=== PATIENT | male | born 1940 | race Caucasian/White ===

== ENCOUNTER 2022-07-20 11:18 | Emergency (ER) | payer MEDICARE, SELFPAY ==
[2022-07-20 11:26] VITALS: BP 136/73; PULSE 104; RESP 18; TEMP 36.7; O2SAT 95; BMI 29.5
--- NOTE | 2022-07-20 11:41 | W.ED.BACK ---
Documented by User: Zaynab Corcoran PA-C 07/20/22 15:32 HPI - Back Pain/Injury General: Chief Complaint: Back Pain/Injury Stated Complaint: hip and leg pain, both Time Seen by Provider: 07/20/22 11:41 Source: patient Mode of arrival: ambulatory Limitations: no limitations History of Present Illness: 82-year-old male presents to the ER today for low back pain and difficulty walking since this morning. Patient reports over the last couple days he has noticed some increased low back pain. Patient reports he has a history of low back problems and will have flareups occasionally however this is extreme in comparison to his history. Patient reports this morning the back pain was so bad that he could not walk. Patient reports he is okay when he sitting however when he stands and tries to lift his legs he is unable to lift his legs. Patient reports he fell to the ground and his had to call for help to get him up. Patient denies any loss of bowel or bladder control. His biggest issue is not being able to lift the legs. Review of Systems General: Reports: 10 or more systems reviewed and unremarkable except in HPI and below Physical Exam Const: COMMON NORMALS: average body habitus, patient oriented x3, no limitations, healthy appearing, alert and well nourished; apparent distress (No distress unless trying to ambulate) Resp: COMMON NORMALS: normal respiratory effort EFFORT & INSPECTION: Yes able to speak in complete sentences Cardio: COMMON NORMALS: regular rhythm RATE: tachycardic RHYTHM: regular rhythm : COMMON NORMALS: Yes no CVA tenderness BLADDER/KIDNEY EXAM: Yes no CVA tenderness Back/Pelvis: COMMON NORMALS: no CVA tenderness and thoracic and lumbar spine normal to inspection; negative for no thoracic nor lumbar tenderness and negative for thoraco-lumbar ROM normal OTHER: Patient has tenderness over bilateral SI joints. Patient has difficulty lifting his legs when standing however is able to lift against resistance when sitting. Extremity: COMMON NORMALS: normal to inspection and full ROM Neuro: COMMON NORMALS: patient oriented x3 SENSORIUM/ORIENTATION: Yes alert Psych: COMMON NORMALS: mental status grossly normal, Normal thought process present and cooperative THOUGHT PROCESS: Normal thought process present Skin: COMMON NORMALS: no rashes or lesions noted and no wounds GENERAL SKIN EXAM: no rashes or lesions noted Course ED course: 82-year-old male presents to the ER today for worsening low back pain and inability to lift his legs when standing. Patient has a history of low back problems and has occasional flareups however this is much different. Patient reports that it worsened significantly this morning and he fell to the ground. His was unable to get him out of the floor. Patient reports he can lift his legs while sitting however when he stands up he is unable to lift his legs to walk. Patient denies any loss of bowel or bladder control at this time. We will get an x-ray and likely CT. May have to also get an MRI depending on results giveb neurological deficit. Reevaluation(s): Reevaluation #1: Patient had significant pain after the CT and having to lay flat. Patient given fentanyl for pain. Time: 13:47 Reevaluation #2: I spoke with Dr. Higgins regarding patient's MRI results. He reports patient does need seen he would be glad to see him Saturday in the clinic. In the meantime he recommends high-dose steroids and something for pain. Time: 15:30 Vital Signs: Vital signs: Vital Signs Temperature 98.1 F 07/20/22 11:26 Pulse Rate 104 H 07/20/22 11:26 Respiratory Rate 16 07/20/22 15:29 Blood Pressure 136/73 07/20/22 11:26 Pulse Oximetry 95 07/20/22 11:26 Oxygen Delivery Me thod 07/20/22 11:26 MDM - Back Pain/Injury Medical Decision Making 82-year-old male presents to the ER today for worsening low back pain and inability to lift his legs when standing. Patient has a history of low back problems and has occasional flareups however this is much different. Patient reports that it worsened significantly this morning and he fell to the ground. His was unable to get him out of the floor. Patient reports he can lift his legs while sitting however when he stands up he is unable to lift his legs to walk. Patient denies any loss of bowel or bladder control at this time. We will get an x-ray and likely CT. May have to also get an MRI depending on results given neurological deficit. Imaging results all were obtained and patient appears to have some pretty significant stenosis of the central canal and encroachment on multiple nerve roots. Likely this is the cause of patient's neurological symptoms. I did discuss these findings with Dr. Higgins who would like to see patient in clinic on Saturday. He did not feel this was a surgical emergency today. He would recommend high-dose steroids and recommended 60 mg x 3 days, 40 mg x 2 days and then 20 mg x 2 days. I will also send patient home with hydrocodone for pain and they requested a muscle relaxer. Discussed with patient that he needs to return to the ER with any worsening neurological symptoms including loss of bowel or bladder control. Patient also should make sure he has a wheelchair or walker at home to prevent falls given his difficulty with ambulation. Patient and verbalized understanding and are in agreement with the treatment plan. Labs Radiology Impressions Lumbar Spine X-Ray 07/20/22 11:45 IMPRESSION: 1. Osteopenia. 2. Grade 1 anterolisthesis L4 on L5 measuring 7 mm. 3. Advanced facet arthropathy L3-L5. 4. Disc space narrowing worse L5-S1. 5. 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 6. Infrarenal abdominal aortic aneurysm measuring 3.1 cm in AP dimension. Lumbar Spine CT 07/20/22 11:57 IMPRESSION: 1. High-grade severe central canal stenosis L4-L5 due to grade 1 anterolisthesis in combination with disc bulging and advanced facet arthropathy with ligamentum flavum hypertrophy. Moderate to severe RIGHT foraminal narrowing 2. Moderate central canal stenosis L2-L3 and moderate to severe central canal stenosis L3-L4. 3. Moderate to severe multilevel bony foraminal narrowing worse at RIGHT L3-L4, RIGHT L4-L5, and bilateral L5-S1. Attempted notification Zaynab Corcoran PA-C at 07/20/2022 12:37 PM. Lumbar Spine MRI 07/20/22 12:57 IMPRESSION: 1. Severe central, bilateral subarticular recess and foraminal stenosis at L3-4 and L4-5. Combination of disc, osteophytes, facet and ligamentum flavum disease. 2. Moderate central stenosis at L2-3 with severe bilateral subarticular recess and moderate foraminal stenosis. Most significant encroachment upon the traversing L3 nerve roots. 3. Moderate to severe bilateral foraminal stenosis at L5-S1 with encroachment upon the L5 and S1 nerve roots. Critical Care Time Critical Care Time: Critical Care Time: No Discharge Plan Discharge Patient Disposition: Home Clinical Impression: Foraminal stenosis of lumbar region, Pain from lumbosacral nerve root Condition: Stable Prescriptions: New prednisone 20 mg tablet See Rx Instructions .ROUTE .COMPLEX 3 Days Qty: 15 0RF Rx Instructions: 60 mg orally x 3 days, then 40 mg daily x 2 days then 20 mg daily x 2 days hydrocodone-acetaminophen 5-325 mg tablet 1 tab PO Q8H PRN (Reason: pain) Qty: 12 0RF methocarbamol 750 mg tablet 750 mg PO Q8H Qty: 21 0RF Discharge Orders: Discharge ED (Routine); Ordered 07/20/22 Ordered By: Zaynab Corcoran Discharge Diet: Usual diet Discharge Activity: Limit activity as instructed Patient Instructions: Opioid Safety Activity Restrictions/Additional Instructions: Take medications as prescribed. Follow-up with Dr. Higgins on Saturday. Use a walker or wheelchair for ambulation at home to avoid falls. Return to the ER for any new or worsening symptoms including loss of bowel or bladder control or other neurological deficits. 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 Documented by User: George Tam DO 07/20/22 18:37 HPI - Back Pain/Injury General: Chief Complaint: Back Pain/Injury Stated Complaint: hip and leg pain, both Time Seen by Provider: 07/20/22 11:41 Course Vital Signs: Vital signs: Vital Signs Temperature 98.1 F 07/20/22 11:26 Pulse Rate 104 H 07/20/22 11:26 Respiratory Rate 16 07/20/22 15:29 Blood Pressure 136/73 07/20/22 11:26 Pulse Oximetry 95 07/20/22 11:26 Oxygen Delivery Me thod 07/20/22 11:26 MDM - Back Pain/Injury Medical Decision Making 82-year-old male presents to the ER today for worsening low back pain and inability to lift his legs when standing. Patient has a history of low back problems and has occasional flareups however this is much different. Patient reports that it worsened significantly this morning and he fell to the ground. His was unable to get him out of the floor. Patient reports he can lift his legs while sitting however when he stands up he is unable to lift his legs to walk. Patient denies any loss of bowel or bladder control at this time. We will get an x-ray and likely CT. May have to also get an MRI depending on results given neurological deficit. Imaging results all were obtained and patient appears to have some pretty significant stenosis of the central canal and encroachment on multiple nerve roots. Likely this is the cause of patient's neurological symptoms. I did discuss these findings with Dr. Higgins who would like to see patient in clinic on Saturday. He did not feel this was a surgical emergency today. He would recommend high-dose steroids and recommended 60 mg x 3 days, 40 mg x 2 days and then 20 mg x 2 days. I will also send patient home with hydrocodone for pain and they requested a muscle relaxer. Discussed with patient that he needs to return to the ER with any worsening neurological symptoms including loss of bowel or bladder control. Patient also should make sure he has a wheelchair or walker at home to prevent falls given his difficulty with ambulation. Patient and verbalized understanding and are in agreement with the treatment plan. Chart reviewed and patient discussed with midlevel. Agree with assessment and plan. Labs Radiology Impressions Lumbar Spine X-Ray 07/20/22 11:45 IMPRESSION: 1. Osteopenia. 2. Grade 1 anterolisthesis L4 on L5 measuring 7 mm. 3. Advanced facet arthropathy L3-L5. 4. Disc space narrowing worse L5-S1. 5. 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 6. Infrarenal abdominal aortic aneurysm measuring 3.1 cm in AP dimension. Lumbar Spine CT 07/20/22 11:57 IMPRESSION: 1. High-grade severe central canal stenosis L4-L5 due to grade 1 anterolisthesis in combination with disc bulging and advanced facet arthropathy with ligamentum flavum hypertrophy. Moderate to severe RIGHT foraminal narrowing 2. Moderate central canal stenosis L2-L3 and moderate to severe central canal stenosis L3-L4. 3. Moderate to severe multilevel bony foraminal narrowing worse at RIGHT L3-L4, RIGHT L4-L5, and bilateral L5-S1. Attempted notification Zaynab Corcoran PA-C at 07/20/2022 12:37 PM. Lumbar Spine MRI 07/20/22 12:57 IMPRESSION: 1. Severe central, bilateral subarticular recess and foraminal stenosis at L3-4 and L4-5. Combination of disc, osteophytes, facet and ligamentum flavum disease. 2. Moderate central stenosis at L2-3 with severe bilateral subarticular recess and moderate foraminal stenosis. Most significant encroachment upon the traversing L3 nerve roots. 3. Moderate to severe bilateral foraminal stenosis at L5-S1 with encroachment upon the L5 and S1 nerve roots. Discharge Plan Discharge Patient Disposition: Home Clinical Impression: Foraminal stenosis of lumbar region, Pain from lumbosacral nerve root Condition: Stable Prescriptions: New prednisone 20 mg tablet See Rx Instructions .ROUTE .COMPLEX 3 Days Qty: 15 0RF Rx Instructions: 60 mg orally x 3 days, then 40 mg daily x 2 days then 20 mg daily x 2 days hydrocodone-acetaminophen 5-325 mg tablet 1 tab PO Q8H PRN (Reason: pain) Qty: 12 0RF methocarbamol 750 mg tablet 750 mg PO Q8H Qty: 21 0RF Discharge Orders: Discharge ED (Routine); Ordered 07/20/22 Ordered By: Zaynab Corcoran Discharge Diet: Usual diet Discharge Activity: Limit activity as instructed Patient Instructions: Opioid Safety Activity Restrictions/Additional Instructions: Take medications as prescribed. Follow-up with Dr. Higgins on Saturday. Use a walker or wheelchair for ambulation at home to avoid falls. Return to the ER for any new or worsening symptoms including loss of bowel or bladder control or other neurological deficits. 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
--- NOTE | 2022-07-20 11:45 | XR_ITS ---
WS: [id number] LUMBAR SPINE TECHNIQUE: 3 views of the lumbar spine CLINICAL INFORMATION: acute low back pain COMPARISON: None. FINDINGS: Five [id number] lumbar vertebral bodies. Osteopenia. Grade 1 anterolisthesis L4 on L5 measuring 7 mm. Disc space narrowing worse L5-S1. Advanced facet arthropathy L3-L5. Ankylosis in the lower thor acic spine. Aortic calcification. Ectatic infrarenal abdominal aorta measuring 3.1 cm in AP dimension . XR/XR lumbar spine 2-3V* [id number] IMPRESSION: 1. Osteopenia. 2. Grade 1 anterolisthesis L4 on L5 measuring 7 mm. 3. Advanced facet arthropathy L3-L5. 4. Disc space narrowing worse L5-S1. 5. 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 6. Infrarenal abdominal aortic aneurysm measuring 3.1 cm in AP dimension.
--- NOTE | 2022-07-20 11:57 | CT_ITS ---
WS: [id number] CT LUMBAR SPINE TECHNIQUE: Noncontrast CT of the lumbar spine with coronal and sagittal reformatted images. CLINICAL INFORMATION: weakness/cannot lift legs COMPARISON: None. DLP: 878.[address] scans at [facility] use at least one of these dose optimization techniques: automated e xposure control; mA and/or kV adjustment per patient size (includes targeted exams where dose is matc hed to clinical indication); or iterative reconstruction. FINDINGS: Mild lumbar curve. No acute compression. Osteopenia. Vacuum disc phenomenon at L3-L4 L4-L5 and L5-S1. Grade 1 anterolisthesis L4 on L5 measuring 7 mm. No acute appearing compression fractures. 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 Adrenal glands are normal. Fatty atrophy of the pancreas. Splenic artery calcification. Small infrare nal abdominal aortic aneurysm 2.3 x 2.2 cm AP by transverse. Hypertrophic changes sacroiliac joints. T12-L1: Narrowing of the RIGHT subarticular recess with RIGHT facet arthropathy. Mild RIGHT and no si gnificant LEFT foraminal narrowing. L1-L2: Mild disc osteophytic ridging. Narrowing of the subarticular recess. Moderate facet arthropath y. Mild RIGHT foraminal narrowing. L2-L3: Disc osteophyte complex with endplate ridging. Central disc osteophyte protrusion. Moderate ce ntral canal stenosis with advanced facet arthropathy and ligamentum flavum hypertrophy. Mild bilatera l foraminal narrowing. L3-L4: Mild disc bulging with osteophytic ridging. Moderate to severe central canal stenosis. Advance d facet arthropathy. Impingement on the traversing RIGHT greater than LEFT L4 nerve roots. Severe RIG HT and moderate LEFT foraminal narrowing. L4-L5: Severe central canal stenosis due to grade 1 anterolisthesis in combination with disc bulging advanced facet arthropathy. Ligamentum flavum hypertrophy. Moderate to severe RIGHT and mild LEFT bon y foraminal narrowing. L5-S1: Disc osteophyte complex with endplate ridging. Impingement traversing S1 nerve roots bilateral ly. Moderate facet arthropathy. Moderate to severe bilateral bony foraminal narrowing. CT/CT lumbar spine wo con* [id number] IMPRESSION: 1. High-grade severe central canal stenosis L4-L5 due to grade 1 anterolisthes is in combination with disc bulging and advanced facet arthropathy with ligamen mo flavum hypertrophy. Moderate to severe RIGHT foraminal narrowing 2. Moderate central canal stenosis L2-L3 and moderate to severe central canal stenosis L3-L4. 3. Moderate to severe multilevel bony foraminal narrowing worse at RIGHT L3-L4 , RIGHT L4-L5, and bilateral L5-S1. Attempted notification Zaynab Corcoran PA-C at 07/20/2022 12:37 PM.
--- NOTE | 2022-07-20 12:57 | MR_ITS ---
WS: [id number] MRI LUMBAR SPINE NONCONTRAST HISTORY: neuro deficit, acute low back pain COMPARISON: CT lumbar spine 07/20/2022 TECHNIQUE: Sagittal and axial multisequence imaging is submitted. Fast scan of the lumbar spine perfo rmed due to patient's severe back pain. Increase in lumbar lordosis. 4 mm anterolisthesis of L4. Mild increase in the lumbar lordosis. No acu te fracture or marrow edema. Mild disc space narrowing and desiccation. Conus terminates normally at L1-2 disc level. L1-L2: Mild bilateral foraminal stenosis due to facet and disc disease. L2-L3: Diffuse annular disc bulging and osteophytic ridging with ligamentum flavum and facet arthriti s. Encroachment into the lateral recesses. Moderate central with severe bilateral subarticular recess stenosis. At least moderate bilateral foraminal stenosis. There is significant encroachment upon the traversing L3 nerve roots bilaterally. L3-L4: Diffuse osteophytic ridging and annular disc bulging with severe ligamentum flavum and facet a rthritis. Complete effacement of CSF. Severe central, bilateral subarticular recess and foraminal lili nosis. L4-L5: Complete effacement of CSF. There is severe generative disc disease with ligamentum flavum hyp ertrophy and facet arthritis. There may be disc protrusions but these are difficult to see a months t he remaining changes. Severe central, bilateral subarticular recess and foraminal stenosis. L5-S1: Asymmetric disc bulging extends to the LEFT. Disc extends into the LEFT lateral recess and LEF T foramen. Additional central disc protrusion. Mild disc contact on the S1 nerve roots and the exitin g L5 nerve roots. Mild central stenosis with moderate to severe bilateral foraminal stenosis. MR/MR lumbar spine wo con* [id number] IMPRESSION: 1. Severe central, bilateral subarticular recess and foraminal stenosis at L3- 4 and L4-5. Combination of disc, osteophytes, facet and ligamentum flavum disea se. 2. Moderate central stenosis at L2-3 with severe bilateral subarticular recess and moderate foraminal stenosis. Most significant encroachment upon the janae sing L3 nerve roots. 3. Moderate to severe bilateral foraminal stenosis at L5-S1 with encroachment upon the L5 and S1 nerve roots.
[2022-07-20 14:28] VITALS: RESP 16
[2022-07-20] MEDS: fentaNYL 50 mcg/mL INJ 2mL IVP ×2 (14:28→15:29)
[2022-07-20 15:29] VITALS: RESP 16
--- NOTE | 2022-07-20 16:55 | DCPLANNER ---
Addendum entered by Betsy Wheeler 07/24/22 16:25: medical territory manager received the following message from the ortho clinic regarding follow up appointment: Called and spoke with pts . Pt is on his way to the ER via ambulance for this same issue currently. They will call if needed at a later time Patient came back to the ER and was admitted to the hospital. Original Note: medical territory manager had message to schedule a follow up appointment for patient with ortho. medical territory manager sent patients information to the front office staff at ortho. Patients information will be printed and reviewed. Clinic will call patient with appointment information.
== END 2022-07-20 15:39 | disposition home or self-care (01) ==
PROVIDERS: Emergency Provider Physician Assistant
DX: M48.061 Spinal stenosis, lumbar region without neurogenic claudication (principal); M54.17 Radiculopathy, lumbosacral region
CPT/HCPCS: 72100; 72131; 72148; 96374; 96376; 99285; J3010

== ENCOUNTER 2022-07-23 07:25 | Observation (INO) | payer MEDICARE, SELFPAY ==
[2022-07-23] VITALS (7 sets, daily range): BP systolic 128–144; BP diastolic 68–74; PULSE 78–94; RESP 14–17; TEMP 36.8; O2SAT 97; BMI 29.5; BMI 29.3
--- NOTE | 2022-07-23 07:44 | PC.NURSE ---
Pt states he fell getting out of bed this morning, denies any injury from the fall but says his legs are weak and have been getting worse the last few days to the point he cant walk
--- NOTE | 2022-07-23 07:52 | XR_ITS ---
WS: [id number] XR hip BI 3-4V wo/w pel [id number] REASON FOR EXAM: fall with bilateral hip pain FINDINGS: RIGHT HIP: Moderate narrowing of the joint space. Marginal osteophytosis and subchondral sclerosis of the acetab ulum. Femoral neck and head intact. Avulsion fracture of the right ischial tuberosity. Moderate displacement of the avulsion bony fragmen t. LEFT HIP: Moderate narrowing of the joint space. Marginal osteophytosis and subchondral sclerosis of the acetab ulum. Femoral neck and head intact. Superior and inferior pubic ramus intact. XR/XR hip BI 3-4V wo/w pel [id number] IMPRESSION: Fracture of the right ischial tuberosity as above.
--- NOTE | 2022-07-23 08:00 | ED_ITS ---
Documented by User: CANELO Dao 07/23/22 09:22 HPI - Fall General: Chief Complaint: Fall Stated Complaint: FALL Time Seen by Provider: 07/23/22 07:31 History of Present Illness: Patient is an 82-year-old male who comes to the ED after having a fall. He has had multiple falls recently and was seen back on July 20 for a fall. He endorses having trouble ambulating and states that he has lost sensation in his feet bilaterally. Over the past couple days walking and standing has become more difficult for him. He uses a walker to help with ambulation. Today he got up to go to the bathroom and while in the bathroom due to his trouble walking he fell back onto his butt. Denies any head trauma or loss of consciousness. Patient is not on any blood thinners. He endorses having some bilateral hip pain since fall this morning. He states that over the past couple days he noticed that he is not able to move his toes. Denies any bladder or bowel incontinence or pelvic anesthesia. He was unable to get back up from fall today and EMS was contacted and they came out to his home and brought him here to the ED for evaluation. Patient has an appointment set up with Dr. Higgins tomorrow due to foraminal stenosis of the lumbar region. Associated symptoms-after fall: Reports difficulty walking; Denies abdominal pain, chest pain, headache(s), hematuria or neck pain Review of Systems Const: Denies: fever(s), chills or fatigue Eyes: Denies: change in vision or eye discomfort ENMT: Denies: throat pain, odynophagia, nasal discharge or nasal congestion Card: Denies: chest pain, palpitations, edema, swelling of feet/ankles, dyspnea on exertion or orthopnea Resp: Denies: dyspnea, productive cough or non-productive cough GI: Denies: abdominal pain, nausea, vomiting, diarrhea, constipation or hematochezia : Denies: flank pain, difficulty urinating, dysuria or hematuria Musc: Reports: joint pain (Bilateral hip pain); Denies: neck pain, back pain or extremity swelling Skin/Breast: Denies: rash or new lesions Neuro: Reports: numbness in extremities (Bilateral lower extremities), weakness in extremities (Bilateral lower extremities) and difficulty walking; Denies: headache(s) [facility] ED PFSH: Medical History (Updated 07/23/22 @ 13:19 by Sujit Rice MD) Abdominal aortic aneurysm 3.1 cm per scan July 23, 2022 Heart murmur Hyperlipidemia Hypertension Surgical History (Updated 07/23/22 @ 13:10 by Sujit Rice MD) History of surgery on arm Family History Other Cancer Social History (Updated 07/23/22 @ 13:11 by Sujit Rice MD) Smoking and tobacco status: former smoker Alcohol intake: never Physical Exam Const: COMMON NORMALS: patient oriented x3 and alert GENERAL APPEARANCE: cooperative HENMT: COMMON NORMALS: normocephalic HEAD & SCALP: normocephalic MOUTH: Normal oral and palatal mucosa present THROAT: posterior oropharynx normal and uvula midline Neck/C-Spine: COMMON NORMALS: supple GENERAL: Yes normal visual inspection Resp: COMMON NORMALS: normal respiratory effort, No retractions, No use of accessory muscles and clear to auscultation bilaterally AUSCULTATION: clear to auscultation bilaterally Cardio: COMMON NORMALS: regular rate, regular rhythm, S1 normal heart sound present, S2 normal heart sound present, No gallops present (Cardio), No clicks present (Cardio), No murmurs present (Cardio) and Peripheral pulses 2+ throughout RATE: regular rate RHYTHM: regular rhythm HEART SOUNDS: S1 normal heart sound present and S2 normal heart sound present PERIPHERAL PULSES: Peripheral pulses 2+ throughout GI: COMMON NORMALS: Normal to inspection, nondistended, normoactive bowel sounds present, Soft to palpation, non-tender and no masses PALPATION: Yes Soft to palpation : COMMON NORMALS: Yes no CVA tenderness BLADDER/KIDNEY EXAM: Yes no CVA tenderness Back/Pelvis: COMMON NORMALS: no CVA tenderness Neuro: COMMON NORMALS: patient oriented x3 SENSORIUM/ORIENTATION: Yes alert GAIT: Yes Unable to assess gait Skin: GENERAL SKIN EXAM: dry skin Course Vital Signs: Vital signs: Vital Signs Temperature 98.2 F 07/23/22 07:33 Pulse Rate 94 07/23/22 07:46 Respiratory Rate 16 07/23/22 10:01 Blood Pressure 144/68 07/23/22 07:46 Pulse Oximetry 97 07/23/22 07:46 Oxygen Delivery Me thod 07/23/22 07:33 MDM - Fall Medical Decision Making Patient is an 82-year-old male who comes to the ED with fall. Patient was seen here in the ED after having a fall on July 20. He reports having pr ogressive bilateral lower extremity weakness and loss of sensation and lower extremities bilaterally. He endorses having trouble ambulating. An MRI of the lumbar spine was done on July 20 while here in the ED and it showed severe central bilateral subarticular recess and foraminal stenosis at L3-L4 and L4-L5. some moderate to severe stenosis at the L2-L3 and L5-S1. Patient was set up for an appoint with Dr. Higgins this July 24. Today he had another fall and was complaining of some hip pain after fall. X-ray of hip showed a fracture of the right ischial tuberosity. I talked with Dr. Tam about patient case and he will be taking over care of patient and contacting Dr. Higgins about patient. Lab Data : 07/23/22 07:40 07/23/22 07:40 Radiology Impressions Hip/Pelvis X-Ray 07/23/22 07:52 IMPRESSION: Fracture of the right ischial tuberosity as above. Laboratory Results WBC 14.9 10^3/uL (4.0-10.0) H 07/23/22 07:40 RBC 5.52 10^6/uL (4.1-5.3) H 07/23/22 07:40 Hgb 16.1 g/dL (11.7-16.6) 07/23/22 07:40 Hct 49.0 % (42.0-52.0) 07/23/22 07:40 MCV 88.8 fl (80-94) 07/23/22 07:40 MCH 29.2 pg (28.0-34.0) 07/23/22 07:40 MCHC 32.9 g/dL (30.0-36.0) 07/23/22 07:40 RDW 13.4 % (12.1-15.1) 07/23/22 07:40 Plt Count 282 10^3/cmm (130-400) 07/23/22 07:40 MPV 10.0 fL (7.4-10.4) 07/23/22 07:40 Neut % (Auto) 62.8 % 07/23/22 07:40 Lymph % (Auto) 29.4 % 07/23/22 07:40 Benzie % (Auto) 6.6 % 07/23/22 07:40 Eos % (Auto) 0.4 % 07/23/22 07:40 Baso % (Auto) 0.1 % 07/23/22 07:40 Neut # (Auto) 9.35 10^3/uL (1.8-7.7) H 07/23/22 07:40 Lymph # (Auto) 4.4 10^3/uL (0.8-4.8) 07/23/22 07:40 Benzie # (Auto) 1.0 10^3/uL (0.2-0.9) H 07/23/22 07:40 Eos # (Auto) 0.1 10^3/uL (0.0-0.8) 07/23/22 07:40 Baso # (Auto) 0.0 10^3/uL (0.0-0.1) 07/23/22 07:40 Nucleated RBC % (auto) 0 % 07/23/22 07:40 Nucleated RBCs # 0.0 /100WBC 07/23/22 07:40 Sodium 142 mmol/L (136-145) 07/23/22 07:40 Potassium 3.9 mmol/L (3.5-5.1) 07/23/22 07:40 Chloride 100 mmol/L (98-107) 07/23/22 07:40 Carbon Dioxide 24 mmol/L (22-29) 07/23/22 07:40 Anion Gap 21.9 (5-19) H 07/23/22 07:40 BUN 24 mg/dL (8-23) H 07/23/22 07:40 Creatinine 1.1 mg/dL (0.7-1.2) 07/23/22 07:40 GFR Calculation Not Reportable 07/23/22 07:40 Glucose 111 mg/dL (65-115) 07/23/22 07:40 Calculated Osmolality 299 mOsm/kg (285-295) H 07/23/22 07:40 Calcium 9.6 mg/dL (8.5-10.5) 07/23/22 07:40 Total Bilirubin 0.8 mg/dL (0.15-1.2) 07/23/22 07:40 AST 21 U/L (0-40) 07/23/22 07:40 ALT 27 U/L (0-41) 07/23/22 07:40 Alkaline Phosphatase 58 U/L (40-130) 07/23/22 07:40 Total Protein 7.3 g/dL (6.6-8.7) 07/23/22 07:40 Albumin 4.3 g/dL (3.5-5.2) 07/23/22 07:40 Globulin 3.0 g/dL (1.3-4.6) 07/23/22 07:40 Discharge Plan Discharge Condition: Stable Prescriptions: No Action hydrocodone-acetaminophen 5-325 mg tablet 1 tab PO Q8H PRN (Reason: pain) Qty: 12 0RF methocarbamol 750 mg tablet 750 mg PO Q8H Qty: 21 0RF Lipitor 20 mg Tablet 20 mg PO QAM prednisone 20 mg Tablet See Rx Instructions .ROUTE .COMPLEX Rx Instructions: 60mg po daily for 3 days 40mg po daily for 2 days 20mg po daily for 2 days lisinopril 10 mg Tablet 5 mg PO QAM Aleve 220 mg Tablet 440 mg PO Q12H PRN (Reason: Pain) hydrochlorothiazide 25 mg Tablet 25 mg PO QAM PRN (Reason: Edema) CoQ-10 100 mg Capsule 100 mg PO QAM Vitamin D3 125 mcg (5,000 unit) Tablet 125 mcg PO QAM Vitamin B-12 1,000 mcg/mL Drops 1,000 mcg PO DAILY PRN (Reason: unknown) Sign Out Sign Out Data: Patient Sign Out occurred on 07/23/22 at 08:47. Patient's care was discussed, and care was transferred from to George Tam DO. Coding Level of Care Code ED Hobber for Chg Fwd Exam Comprehensive Documented by User: George Tam DO 07/23/22 13:25 HPI - Fall General: Chief Complaint: Fall Stated Complaint: FALL Time Seen by Provider: 07/23/22 07:31 [facility] ED [facility]: Medical History (Updated 07/23/22 @ 13:19 by Sujit Rice MD) Abdominal aortic aneurysm 3.1 cm per scan July 23, 2022 Heart murmur Hyperlipidemia Hypertension Surgical History (Updated 07/23/22 @ 13:10 by Sujit Rice MD) History of surgery on arm Family History Other Cancer Social History (Updated 07/23/22 @ 13:11 by Sujit Rice MD) Smoking and tobacco status: former smoker Alcohol intake: never Course Vital Signs: Vital signs: Vital Signs Temperature 98.2 F 07/23/22 07:33 Pulse Rate 94 07/23/22 07:46 Respiratory Rate 16 07/23/22 10:01 Blood Pressure 144/68 07/23/22 07:46 Pulse Oximetry 97 07/23/22 07:46 Oxygen Delivery Me thod 07/23/22 07:33 MDM - Fall Medical Decision Making Patient is an 82-year-old male who comes to the ED with fall. Patient was seen here in the ED after having a fall on July 20. He reports having progressive bilateral lower extremity weakness and loss of sensation and lower extremities bilaterally. He endorses having trouble ambulating. An MRI of the lumbar spine was done on July 20 while here in the ED and it showed severe central bilateral subarticular recess and foraminal stenosis at L3-L4 and L4-L5. some moderate to severe stenosis at the L2-L3 and L5-S1. Patient was set up for an appoint with Dr. Higgins this July 24. Today he had another fall and was complaining of some hip pain after fall. X-ray of hip showed a fracture of the right ischial tuberosity. I talked with Dr. Tam about patient case and he will be taking over care of patient and contacting Dr. Higgins about patient. Discussed with Dr. Higgins and Dr. Hinkle. Patient has severe lumbar nerve impingements but no cauda equina on recent MRI done in the emergency room 2 days ago. He has severe radicular symptoms though and is unable to walk now it is gotten the point where he is developed a pelvic fracture from one of his falls today. He will need to be admitted at Dr. Higgins will see him later today. Lab Data I reviewed the patient's lab results. : 07/23/22 07:40 07/23/22 07:40 Radiology Impressions Hip/Pelvis X-Ray 07/23/22 07:52 IMPRESSION: Fracture of the right ischial tuberosity as above. Laboratory Results WBC 14.9 10^3/uL (4.0-10.0) H 07/23/22 07:40 RBC 5.52 10^6/uL (4.1-5.3) H 07/23/22 07:40 Hgb 16.1 g/dL (11.7-16.6) 07/23/22 07:40 Hct 49.0 % (42.0-52.0) 07/23/22 07:40 MCV 88.8 fl (80-94) 07/23/22 07:40 MCH 29.2 pg (28.0-34.0) 07/23/22 07:40 MCHC 32.9 g/dL (30.0-36.0) 07/23/22 07:40 RDW 13.4 % (12.1-15.1) 07/23/22 07:40 Plt Count 282 10^3/cmm (130-400) 07/23/22 07:40 MPV 10.0 fL (7.4-10.4) 07/23/22 07:40 Neut % (Auto) 62.8 % 07/23/22 07:40 Lymph % (Auto) 29.4 % 07/23/22 07:40 Benzie % (Auto) 6.6 % 07/23/22 07:40 Eos % (Auto) 0.4 % 07/23/22 07:40 Baso % (Auto) 0.1 % 07/23/22 07:40 Neut # (Auto) 9.35 10^3/uL (1.8-7.7) H 07/23/22 07:40 Lymph # (Auto) 4.4 10^3/uL (0.8-4.8) 07/23/22 07:40 Benzie # (Auto) 1.0 10^3/uL (0.2-0.9) H 07/23/22 07:40 Eos # (Auto) 0.1 10^3/uL (0.0-0.8) 07/23/22 07:40 Baso # (Auto) 0.0 10^3/uL (0.0-0.1) 07/23/22 07:40 Nucleated RBC % (auto) 0 % 07/23/22 07:40 Nucleated RBCs # 0.0 /100WBC 07/23/22 07:40 Sodium 142 mmol/L (136-145) 07/23/22 07:40 Potassium 3.9 mmol/L (3.5-5.1) 07/23/22 07:40 Chloride 100 mmol/L (98-107) 07/23/22 07:40 Carbon Dioxide 24 mmol/L (22-29) 07/23/22 07:40 Anion Gap 21.9 (5-19) H 07/23/22 07:40 BUN 24 mg/dL (8-23) H 07/23/22 07:40 Creatinine 1.1 mg/dL (0.7-1.2) 07/23/22 07:40 GFR Calculation Not Reportable 07/23/22 07:40 Glucose 111 mg/dL (65-115) 07/23/22 07:40 Calculated Osmolality 299 mOsm/kg (285-295) H 07/23/22 07:40 Calcium 9.6 mg/dL (8.5-10.5) 07/23/22 07:40 Total Bilirubin 0.8 mg/dL (0.15-1.2) 07/23/22 07:40 AST 21 U/L (0-40) 07/23/22 07:40 ALT 27 U/L (0-41) 07/23/22 07:40 Alkaline Phosphatase 58 U/L (40-130) 07/23/22 07:40 Total Protein 7.3 g/dL (6.6-8.7) 07/23/22 07:40 Albumin 4.3 g/dL (3.5-5.2) 07/23/22 07:40 Globulin 3.0 g/dL (1.3-4.6) 07/23/22 07:40 Discharge Plan Discharge Condition: Stable Prescriptions: No Action hydrocodone-acetaminophen 5-325 mg tablet 1 tab PO Q8H PRN (Reason: pain) Qty: 12 0RF methocarbamol 750 mg tablet 750 mg PO Q8H Qty: 21 0RF Lipitor 20 mg Tablet 20 mg PO QAM prednisone 20 mg Tablet See Rx Instructions .ROUTE .COMPLEX Rx Instructions: 60mg po daily for 3 days 40mg po daily for 2 days 20mg po daily for 2 days lisinopril 10 mg Tablet 5 mg PO QAM Aleve 220 mg Tablet 440 mg PO Q12H PRN (Reason: Pain) hydrochlorothiazide 25 mg Tablet 25 mg PO QAM PRN (Reason: Edema) CoQ-10 100 mg Capsule 100 mg PO QAM Vitamin D3 125 mcg (5,000 unit) Tablet 125 mcg PO QAM Vitamin B-12 1,000 mcg/mL Drops 1,000 mcg PO DAILY PRN (Reason: unknown) Sign Out Sign Out Data: Patient Sign Out occurred on 07/23/22 at 08:47. Patient's care was discussed, and care was transferred from to George Tam DO. Coding Level of Care Code ED [place] for Kody Fwd Exam Comprehensive
[2022-07-23] MEDS: morphine 4 mg/mL SDV 1 mL IVP (10:01)
[2022-07-23 10:44] LABS: Alanine Aminotransferase 27 U/L (0-41); Albumin Level 4.3 g/dL (3.5-5.2); Alkaline Phosphatase 58 U/L (40-130); Anion Gap 21.9 (5-19); Aspartate Amino Transferase 21 U/L (0-40); Blood Urea Nitrogen 24 mg/dL (8-23); Calcium 9.6 mg/dL (8.5-10.5); Carbon Dioxide 24 mmol/L (22-29); Chloride 100 mmol/L (98-107); Glucose 111 mg/dL (65-115); Osmolality Calculated 299 mOsm/kg (285-295); Potassium 3.9 mmol/L (3.5-5.1); Sodium 142 mmol/L (136-145); Total Bilirubin 0.8 mg/dL (0.15-1.2); Total Protein 7.3 g/dL (6.6-8.7)
[2022-07-23 10:58] LABS: Basophils % 0.1 %; Eosinophils # 0.1 10^3/uL (0.0-0.8); Eosinophils % 0.4 %; Hemoglobin 16.1 g/dL (11.7-16.6); Lymphocytes # 4.4 10^3/uL (0.8-4.8); Lymphocytes % 29.4 %; Mean Corpuscular HGB Conc 32.9 g/dL (30.0-36.0); Mean Corpuscular Hemoglobin 29.2 pg (28.0-34.0); Mean Corpuscular Volume 88.8 fl (80-94); Monocytes % 6.6 %; Neutrophils # 9.35 10^3/uL (1.8-7.7); Neutrophils % 62.8 %; Nucleated Red Blood Cells % 0 %; Platelet Count 282 10^3/cmm (130-400); Red Blood Count 5.52 10^6/uL (4.1-5.3); Red Cell Distribution Width 13.4 % (12.1-15.1); White Blood Count 14.9 10^3/uL (4.0-10.0)
--- NOTE | 2022-07-23 11:20 | PM.HP ---
Providers/Chief Complaint Admitting Physician: Sujit Rice MD Primary Care Provider: SIGIFREDO Cavanaugh Chief Complaint: FALL History of Present Illness Broderick Collazo is a 82 year old male who presents today with progressive weakness of his lower extremities for many years. He has had significant falls at least in the last week. He reports he was up Saturday at [facility], had a severe pain in his back. Since that time he has had multiple falls starting on Saturday. He has had at least 7 falls since that time. Some low back pain. Reports it seems worse on his right foot. has had to hold onto him while he has been up and he is severely weak in his lower extremities, complaining of constant numbness. No headache, neck injury, upper extremity difficulties. No recent fever, cough. Last urination last night. Does dribble quite a bit. Denies incontinence. No encopresis. Review of Systems General: Reports: 10 or more systems reviewed and unremarkable except in HPI and below Const: Denies: fever(s) or chills Eyes: Denies: change in vision ENMT: Denies: throat pain Card: Denies: chest pain Resp: Denies: dyspnea GI: Denies: abdominal pain, nausea, vomiting, hematochezia or melena : Reports: urinary dribbling; Denies: flank pain Musc: Reports: back pain; Denies: neck pain Skin/Breast: Denies: rash Neuro: Reports: weakness in extremities, sensory changes and difficulty walking; Denies: headache(s) Psych: Denies: anxiety or depression Endo: Denies: polyuria Mason/Lymph: Denies: easy bruising All/Imm: Denies: urticaria Medications/Allergies Home Medications Medication Instructions Recorded Confirmed Last Taken Type hydrocodone 5 mg-acetaminophen 325 1 tab PO Q8H PRN pain #12 tabs 07/20/22 07/23/22 Unknown Rx mg tablet methocarbamol 750 mg tablet 750 mg PO Q8H #21 tabs 07/20/22 07/23/22 07/22/22 Rx atorvastatin 20 mg tablet (Lipitor) 20 mg PO QAM 07/23/22 07/23/22 07/22/22 History cholecalciferol (vitamin D3) 125 125 mcg PO QAM 07/23/22 07/23/22 07/22/22 History mcg (5,000 unit) tablet (Vitamin D3) coenzyme Q10 100 mg capsule 100 mg PO QAM 07/23/22 07/23/22 07/22/22 History (CoQ-10) cyanocobalamin (vitamin B-12) 1,000 mcg PO DAILY PRN unknown 07/23/22 07/23/22 Unknown History 1,000 mcg/mL oral drops (Vitamin B-12) hydrochlorothiazide 25 mg tablet 25 mg PO QAM PRN Edema 07/23/22 07/23/22 Unknown History lisinopril 10 mg tablet 5 mg PO QAM 07/23/22 07/23/22 07/22/22 History naproxen sodium 220 mg tablet 440 mg PO Q12H PRN Pain 07/23/22 07/23/22 Unknown History (Aleve) prednisone 20 mg tablet See Rx Instructions .Route .COMPLEX 07/23/22 07/23/22 07/22/22 History 60 mg Allergies Allergy/AdvReac Type Severity Reaction Status Date / Time meperidine [From Demerol] Allergy Unknown Verified 07/23/22 11:41 Penicillins Allergy Unknown Verified 07/23/22 11:41 PFSH Acute PFSH: Medical History (Updated 07/23/22 @ 13:19 by Sujit Rice MD) Abdominal aortic aneurysm 3.1 cm per scan July 23, 2022 Heart murmur Hyperlipidemia Hypertension Surgical History (Updated 07/23/22 @ 13:10 by Sujit Rice MD) History of surgery on arm Family History Other Cancer Social History (Updated 07/23/22 @ 13:11 by Sujit Rice MD) Smoking and tobacco status: former smoker Alcohol intake: never Vitals/I&O/Wt Last Vital Signs Temp 98.2 F 07/23/22 07:33 Pulse 94 07/23/22 07:46 Resp 16 07/23/22 10:01 BP 144/68 07/23/22 07:46 Pulse Ox 97 07/23/22 07:46 O2 Del Method 07/23/22 07:33 Weight last 48 hrs Weight 90.718 kg Physical Exam Narrative: General exam is a white male, reporting some low back pain, in no distress currently. HEENT: Atraumatic and normocephalic. Pupils equally round. Oropharynx clear. Neck is supple no lymphadenopathy or thyromegaly Cardiovascular regular rate and rhythm with 3/6 systolic murmur, no S3 or S4 Lungs clear no wheezing or crackles Abdomen is soft with positive bowel sounds. No obvious organomegaly exam is deferred Extremities no cyanosis or clubbing. He may have some atrophy of his lower extremities. He definitely has a foot drop on the right. Questionable foot drop on the left. Diminished sensation bilaterally. Neurologic: No focal deficits in his upper extremities. No obvious cranial nerve deficits. Lower extremities are weak with diminished sensation. Skin no rash Data : 07/23/22 07:40 07/23/22 07:40 Other Labs: Liver function tests are normal Right ischial tuberosity fracture on hip and pelvis x-ray Lumbar spine MRI with severe lumbar stenosis A&P Assessment and plan (1) Fall: Patient with multiple falls recently, attributed to poor sensation in his legs bilaterally consistent with his lumbar stenosis. Status: Acute (2) Lumbar stenosis: Patient with history of severe lumbar stenosis on recent MRI. I believe this is likely contributing to nerve impingement, peripheral neuropathy, right foot drop Physical therapy and Occupational Therapy consultation Orthopedic spine surgery consultation Check bladder scan UA with micro is white blood cell count slightly elevated Status: Acute (3) Fracture of ischial tuberosity: Orthopedic consultation Status: Acute (4) Heart murmur: Check echocardiogram. Patient with murmur consistent with aortic stenosis. Check severity. Status: Acute (5) Hypertension: Continue home medications Status: Acute Plan Multiple other medical problems as outlined in past medical history Allow natural . Discussed with him and his . Lovenox for DVT prophylaxis Care coordination consult. May need placement. Attestations Medical Necessity Statement*: Will need greater than 2 midnight stay secondary to repetitive falls, severe lumbar stenosis requiring therapy and possibly surgery, and ischial tuberosity fracture. 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 Fw Diagnoses Fall W19.XXXA Lumbar stenosis M48.061 Fracture of ischial tuberosity S32.699A Heart murmur R01.1 Hypertension I10
--- NOTE | 2022-07-23 15:52 | USCV_ITS ---
Broderick Collazo Age: 82 Gender: M : 1940 Exam Date: 07/23/2022 16:01 Ordering Phys: Sujit Rice MD Technologist: Sina Manjarrez Exam Location: [facility] [place] Indication: Cruzur BP: 132 / 80 HR: 74 Rhythm: Sinus Technical Quality: Adequate MEASUREMENTS (Male / Female) Normal Values 2D ECHO LV Diastolic Diameter PLAX 4.2 cm 4.2 - 5.9 / 3.9 - 5.3 cm LV Systolic Diameter PLAX 2.6 cm IVS Diastolic Thickness 1.3 cm 0.6 - 1.0 / 0.6 - 0.9 cm IVS Systolic Thickness 1.6 cm LVPW Diastolic Thickness 1.2 cm 0.6 - 1.0 / 0.6 - 0.9 cm LVPW Systolic Thickness 1.7 cm LVOT Diameter 2.1 cm LV Ejection Fraction 2D Teich 69.0 % LV Ejection Fraction MOD 2C 64.1 % LV Ejection Fraction 2C AL 67.3 % LA Diameter 3.6 cm Aorta at Sinotubular Diameter 3.1 cm IVC Diameter 1.6 cm M-MODE Aortic Annulus Diameter 3.9 cm LA Ao Ratio MM 1.0 MV E Point Septal Separation 1.0 cm DOPPLER AV Peak Velocity 230.0 cm/s LVOT Peak Velocity 110.0 cm/s AV Area Cont Eq vti 1.5 cm squared AV Area Cont Eq pk 1.6 cm squared MV Area PHT 5.0 cm squared Mitral E to A Ratio 0.6 MV E' Velocity 34.0 cm/s Mitral E to MV E' Ratio 8.4 Mitral E to LV E' Lateral Ratio 8.9 Mitral E to LV E' Septal Ratio 8.0 TR Peak Velocity 124.0 cm/s TR Peak Gradient 6.2 mmHg TV Peak E Velocity 88.0 cm/s Right Atrial Pressure 3.0 mmHg Pulmonary Artery Systolic Pressu 9.2 mmHg RV Acceleration Time 0.1 s FINDINGS Left Ventricle Normal left ventricular size, systolic function and wall thickness, with no regional wall motion abnormalities. Left ventricular ejection fraction is estimated at 65 %. Grade I diastolic dysfunction (abnormal relaxation filling pattern), normal to mildly elevated filling pressures. Right Ventricle Normal right ventricular size and systolic function. RVSP could not be calculated due to incomplete tricuspid regurgitation velocity profile. Right Atrium Normal right atrial size. Left Atrium Mildly increased left atrial size. Mitral Valve Moderate mitral annular calcification. No mitral valve stenosis. No mitral valve regurgitation. Aortic Valve Moderately thickened and calcified trileaflet aortic valve. Aortic valve sclerosis without stenosis. Mild aortic valve regurgitation. Tricuspid Valve Structurally normal tricuspid valve. No tricuspid valve regurgitation. Pulmonic Valve Pulmonic valve not well visualized. No pulmonary valve stenosis. No pulmonary valve regurgitation. Pericardium No pericardial effusion. Aorta Normal size aortic root and proximal ascending aorta. IVC Normal sized inferior vena cava. CONCLUSIONS 1. Normal left ventricular size, systolic function and wall thickness, with no regional wall motion abnormalities. Left ventricular ejection fraction is estimated at 65 %. Grade I diastolic dysfunction (abnormal relaxation filling pattern), normal to mildly elevated filling pressures. 2. Normal right ventricular size and systolic function. 3. Moderately thickened and calcified trileaflet aortic valve. Aortic valve sclerosis without stenosis. Mild aortic valve regurgitation. 4. No prior similar studies to compare. Kiki Benedict MD (Electronically Signed) Final Date: 24 July 2022 08:45 S
--- NOTE | 2022-07-23 15:56 | P.CONIM_ITS ---
Providers/Reason For Consult Consulting Physician/Specialty*: Ortho Spine Reason for Consult*: Leg weakness Attending Physician: Sujit Rice MD Primary Care Provider: SIGIFREDO Cavanaugh History of Present Illness History of Present Illness Broderick Collazo is a 82 year old male who presented to [facility] emergency room after repeated falls. X-rays and MRI scan were performed which showed fracture to his right ischial tuberosity as well as severe stenosis in the lumbar spine. [facility] spine was consulted. Patient was evaluated in ER bay 9 with his present complaining of bilateral leg weakness with bilateral foot drop worse on the right than the left. He states he has been falling since the evening of 07/19/2022 and is progressively worsened. He states he cannot walk without a walker but now cannot even stand. Reports pain in his right buttock region worse since the fall. He can only walk a few steps before he had to sit down because of his leg pain and weakness. He denies any loss of bowel or bladder control. Pain has been sharp stabbing localized to the low back and right buttock region with numbness tingling weakness down into his feet. His stated that she was rubbing his feet when she noticed that he had the foot drop on both sides recently. She tried to get him to the emergency room but he would not go until the most recent fall this morning which prompted his right buttock pain to intensify. He has not found much to relieve his symptoms rest gives him some temporary relief of his low back pain. Ranks the pain as 7 out of 10 on the pain scale. An extensive review of the patient's past medical history, surgical history, allergies, medications, family history, social history, and review of systems was completed Review of Systems General: Reports: 10 or more systems reviewed and unremarkable except in HPI and below Const: Denies: fever(s) or chills Eyes: Denies: change in vision ENMT: Denies: throat pain Card: Denies: chest pain Resp: Denies: dyspnea GI: Denies: abdominal pain, nausea, vomiting, hematochezia or melena : Reports: urinary dribbling; Denies: flank pain Musc: Reports: back pain; Denies: neck pain Skin/Breast: Denies: rash Neuro: Reports: weakness in extremities, sensory changes and difficulty walking; Denies: headache(s) Psych: Denies: anxiety or depression Endo: Denies: polyuria Mason/Lymph: Denies: easy bruising All/Imm: Denies: urticaria Medications/Allergies Home Medications Medication Instructions Recorded Confirmed Last Taken Type hydrocodone 5 mg-acetaminophen 325 1 tab PO Q8H PRN pain #12 tabs 07/20/22 07/23/22 Unknown Rx mg tablet methocarbamol 750 mg tablet 750 mg PO Q8H #21 tabs 07/20/22 07/23/22 07/22/22 Rx atorvastatin 20 mg tablet (Lipitor) 20 mg PO QAM 07/23/22 07/23/22 07/22/22 History cholecalciferol (vitamin D3) 125 125 mcg PO QAM 07/23/22 07/23/22 07/22/22 History mcg (5,000 unit) tablet (Vitamin D3) coenzyme Q10 100 mg capsule 100 mg PO QAM 07/23/22 07/23/22 07/22/22 History (CoQ-10) cyanocobalamin (vitamin B-12) 1,000 mcg PO DAILY PRN unknown 07/23/22 07/23/22 Unknown History 1,000 mcg/mL oral drops (Vitamin B-12) hydrochlorothiazide 25 mg tablet 25 mg PO QAM PRN Edema 07/23/22 07/23/22 Unknown History lisinopril 10 mg tablet 5 mg PO QAM 07/23/22 07/23/22 07/22/22 History naproxen sodium 220 mg tablet 440 mg PO Q12H PRN Pain 07/23/22 07/23/22 Unknown History (Aleve) prednisone 20 mg tablet See Rx Instructions .Route .COMPLEX 07/23/22 07/23/22 07/22/22 History 60 mg Allergies Allergy/AdvReac Type Severity Reaction Status Date / Time meperidine [From Demerol] Allergy Unknown Verified 07/23/22 11:41 Penicillins Allergy Unknown Verified 07/23/22 11:41 PFSH Acute PFSH: Medical History (Updated 07/23/22 @ 16:07 by Eduardo Maddox PA-C) Abdominal aortic aneurysm 3.1 cm per scan July 23, 2022 Heart murmur Hyperlipidemia Hypertension Surgical History (Updated 07/23/22 @ 13:10 by Sujit Rice MD) History of surgery on arm Family History Other Cancer Social History (Updated 07/23/22 @ 13:11 by Sujit Rice MD) Smoking and tobacco status: former smoker Alcohol intake: never Vitals/I&O/Wt Last Vital Signs Temp 98.2 F 07/23/22 07:33 Pulse 78 07/23/22 14:52 Resp 14 07/23/22 14:52 BP 128/74 07/23/22 14:52 Pulse Ox 97 07/23/22 14:52 O2 Del Method 07/23/22 07:33 Weight last 48 hrs Weight 200 lb Physical Exam Narrative: He is alert orient x3 has good general appearance normal mood and affect. Pain with palpation to the low back. He has negative logroll bilaterally he has palpable pain in the right buttock region. His legs are cool to the touch feet are cool to the touch as well. Bilateral EHLs do not fire con sistent with bilateral foot drop. Dorsalis pedis posterior pulses are palpable. Calves are supple no medial thigh tenderness. He has good cap refill both lower extremity digits. Decreased sensation light touch diffusely in both lower extremities. He has good motor strength in both lower extremities except the L5 distribution. Mild palpable pain in the low back nontender in the thoracic or cervical spine he has mildly positive logroll on the right negative on the left. He has full range of motion of both upper extremity at the shoulders elbows and wrist hands warm good cap refill radial pulses are palpable. Full range of motion of the cervical spine with no palpable pain. Good sensation light touch in both upper extremities. Const: COMMON NORMALS: no acute distress HENMT: COMMON NORMALS: normocephalic and atraumatic HEAD & SCALP: normo cephalic and atraumatic Resp: COMMON NORMALS: normal respiratory effort Cardio: COMMON NORMALS: regular rate and regular rhythm RATE: regular rate RHYTHM: regular rhythm GI: COMMON NORMALS: Soft to palpation and non-tender PALPATION: Yes Soft to palpation OTHER: Evidence of an umbilical hernia : COMMON NORMALS: Yes no CVA tenderness BLADDER/KIDNEY EXAM: Yes no CVA tenderness Back/Pelvis: COMMON NORMALS: no CVA tenderness Psych: COMMON NORMALS: mental status grossly normal and cooperative Data : 07/23/22 07:40 07/23/22 07:40 MRI: Radiologist's impression: MR/MR lumbar spine wo con* [id number] IMPRESSION: ? 1.? Severe central, bilateral subarticular recess and foraminal stenosis at L3-4 and L4-5. Combination of disc, osteophytes, facet and ligamentum flavum disease. 2.? Moderate central stenosis at L2-3 with severe bilateral subarticular recess and moderate foraminal stenosis. Most significant encroachment upon the traversing L3 nerve roots. 3.? Moderate to severe bilateral foraminal stenosis at L5-S1 with encroachment upon the L5 and S1 nerve roots. ? A&P Assessment and plan (1) Spinal stenosis, lumbar region, with neurogenic claudication: Discussed the MRI scan at length with the patient and his . At this point due to the severe central stenosis at L3-4 and L4-5 along with his bilateral foot drop injections are not an option due to the concern of worsening his symptoms due to introducing volume into a tight space. Patient is wanting something more definitive done to help him return to walking program. Discussed a lumbar decompression with him and his . Discussed the risks and benefits of that procedure with him at length. He wishes to proceed. Discussed this at length with Dr. Higgins and he agrees above-stated plan. More than 50% of the time spent with the patient today involved coordination of care, counseling and discussion of conservative versus surgical treatment options. Total amount of time spent with the patient was 45 minutes. Status: Acute (2) Fracture of ischial tuberosity: Status: Acute Qualifiers: Encounter type: initial encounter Fracture type: closed Laterality: right Qualified Code(s): S32.691A - Other specified fracture of right ischium, initial encounter for closed fracture (3) Bilateral foot-drop: Status: Acute Coding Level of Care Code New Pt Acute Dev Manager for Chg Fwd Patient Type New History Detailed Exam Detailed Medical Decision Making Moderate Complexity Diagnoses Spinal stenosis, lumbar region, with neurogenic claudication M48.062 Fracture of ischial tuberosity S32.691A Encounter type: initial encounter Fracture type: closed Laterality: right Bilateral foot-drop M21.371; M21.372 Time Spent (min) 45
[2022-07-23] MEDS: oxyCODONE 5 mg IR Tab/Cap PO ×2 (16:32→23:51)
[2022-07-23] MEDS: enoxaparin 40 mg/0.4 mL Syringe SUBCUT (16:44)
[2022-07-23] MEDS: acetaminophen 325 mg Tablet 650 MG PO (20:08)
[2022-07-24] VITALS (9 sets, daily range): BP systolic 117–156; BP diastolic 61–80; PULSE 58–82; RESP 14–20; TEMP 36.3–37; O2SAT 94–98
[2022-07-24 02:25] LABS: Bilirubin Urine Neg (Negative); Blood Urine Neg (Negative); Glucose Urine UA Norm (Normal); Ketones Urine Negative (Negative); Nitrate Urine Negative (Negative); Protein Urine Neg (Negative); Urine Appearance Clear (CLEAR); Urine Color Yellow (Yellow); pH Urine 6 (5-7)
[2022-07-24 02:26] LABS: Add Urine Culture? No; Hyaline Casts Urine 0-4 /lpf; Leukocyte Esterase Urine Negative (Negative); Mucus Urine 1+ /hpf; Squamous Epithelial Cell Urine 0-4 /hpf (0-5); Urobilinogen Urine Norm (Negative)
[2022-07-24 05:12] LABS: Basophils % 0.3 %; Eosinophils # 0.2 10^3/uL (0.0-0.8); Eosinophils % 3.3 %; Hematocrit 39.9 % (42.0-52.0); Hemoglobin 13.2 g/dL (11.7-16.6); Lymphocytes # 2.2 10^3/uL (0.8-4.8); Lymphocytes % 30.4 %; Mean Corpuscular HGB Conc 33.1 g/dL (30.0-36.0); Mean Corpuscular Hemoglobin 29.5 pg (28.0-34.0); Mean Corpuscular Volume 89.1 fl (80-94); Mean Platelet Volume 9.4 fL (7.4-10.4); Monocytes # 0.8 10^3/uL (0.2-0.9); Monocytes % 10.4 %; Neutrophils # 3.98 10^3/uL (1.8-7.7); Neutrophils % 55.2 %; Nucleated Red Blood Cells % 0 %; Platelet Count 190 10^3/cmm (130-400); Red Blood Count 4.48 10^6/uL (4.1-5.3); Red Cell Distribution Width 13.5 % (12.1-15.1); White Blood Count 7.2 10^3/uL (4.0-10.0)
[2022-07-24 05:38] LABS: Anion Gap 15.2 (5-19); Blood Urea Nitrogen 28 mg/dL (8-23); Calcium 8.8 mg/dL (8.5-10.5); Carbon Dioxide 25 mmol/L (22-29); Chloride 104 mmol/L (98-107); Glucose 85 mg/dL (65-115); Osmolality Calculated 295 mOsm/kg (285-295); Potassium 4.2 mmol/L (3.5-5.1); Sodium 140 mmol/L (136-145)
[2022-07-24] MEDS: lisinopril 10 mg Tablet 5 MG PO (05:57)
[2022-07-24] MEDS: atorvastatin 40 mg Tablet 20 MG PO (05:58)
--- NOTE | 2022-07-24 07:24 | P.PN_ITS ---
Subjective Subjective: Patient with continued complaints of low back and leg pain this morning. Denies any shortness of breath chest pain. Has no questions regarding surgical intervention tomorrow. Vitals/I&O/Wt Last Vital Signs Temp 97.3 F L 07/24/22 04:00 Pulse 60 07/24/22 04:00 Resp 18 07/24/22 04:00 BP 128/70 07/24/22 04:00 Pulse Ox 97 07/24/22 04:00 O2 Del Method 07/23/22 20:42 07/23/22 07/24/22 07/24/22 22:59 06:59 14:59 Intake Total 240 / 240 480 / 720 Output Total 300 / 300 Balance 240 / 240 180 / 420 Weight last 48 hrs Weight 199 lb Weight 200 lb Physical Exam Narrative: He is alert orient x3 has good general appearance normal mood and affect. Moving both lower extremities continued foot drop bilaterally feet are cool to the touch dorsalis pedis and posterior tibial pulses are weak but palpable. Calves are supple. Decree sensation diffusely down both lower extremities. No palpable pain in the lumbar spine. HENMT: COMMON NORMALS: normocephalic HEAD & SCALP: normocephalic Resp: COMMON NORMALS: normal respiratory effort Cardio: COMMON NORMALS: regular rate and regular rhythm RATE: regular rate RHYTHM: regular rhythm GI: COMMON NORMALS: Soft to palpation and non-tender PALPATION: Yes Soft to palpation : COMMON NORMALS: Yes no CVA tenderness BLADDER/KIDNEY EXAM: Yes no CVA tenderness Back/Pelvis: COMMON NORMALS: no CVA tenderness Psych: COMMON NORMALS: mental status grossly normal and cooperative Data : 07/24/22 04:43 07/24/22 04:43 A&P Assessment and plan (1) Bilateral foot-drop: Discussed operative decompression with the patient at L3-4 and L4-5. Explained the risks and benefits of the procedure which include but not limited to bleeding, infection, nerve injury, reaction anesthesia, continued back pain understands these risks and wished to proceed. We will make him n.p.o. after midnight proceed with the operative decompression on Saturday. Discussed this with Dr. Higgins agrees above-stated plan. Status: Acute (2) Spinal stenosis, lumbar region, with neurogenic claudication: Status: Acute Attestations Medical Necessity Statement*: Surgery Wednesday Coding Level of Care Code Established Pt Acute Collection Systems Technician for Chg Fwd Patient Type Established History Problem Focused Exam Problem Focused Medical Decision Making Straight Forward Diagnoses Bilateral foot-drop M21.371; M21.372 Spinal stenosis, lumbar region, with neurogenic claudication M48.062
--- NOTE | 2022-07-24 08:09 | PM.PN ---
Subjective Subjective: Broderick reports his feet are still numb. Still having some back pain. Eager to have surgery tomorrow. We discussed that he may need rehabilitation following this. Medications: Reviewed: Yes Vitals/I&O/Wt Last Vital Signs Temp 97.3 F L 07/24/22 04:00 Pulse 60 07/24/22 04:00 Resp 18 07/24/22 04:00 BP 128/70 07/24/22 04:00 Pulse Ox 97 07/24/22 04:00 O2 Del Method 07/23/22 20:42 07/23/22 07/24/22 07/24/22 22:59 06:59 14:59 Intake Total 240 / 240 480 / 720 Output Total 300 / 300 Balance 240 / 240 180 / 420 Weight last 48 hrs Weight 90.265 kg Weight 90.718 kg Physical Exam Narrative: General exam no distress Neck is supple no lymphadenopathy or thyromegaly Cardiovascular regular rate and rhythm with 3/6 systolic murmur, no S3 or S4 Lungs clear no wheezing or crackles Abdomen is soft with positive bowel sounds. No obvious organomegaly Extremities no cyanosis or clubbing or edema Neurologic: No focal deficits in his upper extremities. No obvious cranial nerve deficits. Lower extremities are weak with diminished sensation. Foot drop right greater than left Data : 07/24/22 04:43 07/24/22 04:43 A&P Assessment and plan (1) Fall: Patient with multiple falls recently, attributed to poor sensation in his legs bilaterally consistent with his lumbar stenosis. Fall precautions here at the hospital. Status: Acute (2) Lumbar stenosis: Patient with history of severe lumbar stenosis on recent MRI. I believe this is likely contributing to nerve impingement, peripheral neuropathy, right foot drop Physical therapy and Occupational Therapy consultation Orthopedic spine surgery consultation appreciated Status: Acute (3) Fracture of ischial tuberosity: Orthopedic consultation Status: Acute Qualifiers: Encounter type: initial encounter Fracture type: closed Laterality: right Qualified Code(s): S32.691A - Other specified fracture of right ischium, initial encounter for closed fracture (4) Heart murmur: Echocardiogram report pending. It has been taken.. Patient with murmur consistent with aortic stenosis. Check severity. Status: Acute (5) Hypertension: Continue home medications Status: Acute Plan Multiple other medical problems as outlined in past medical history Allow natural . Discussed with him and his . Lovenox for DVT prophylaxis Care coordination consult. May need placement. Attestations Medical Necessity Statement*: Needs continued hospitalization for definitive treatment for severe spinal stenosis lumbar region causing falls and inability to ambulate. Coding Level of Care Code Acute Machine Woodworking Sander for Chg Fwd Diagnoses Fall W19.XXXA Lumbar stenosis M48.061 Fracture of ischial tuberosity S32.691A Encounter type: initial encounter Fracture type: closed Laterality: right Heart murmur R01.1 Hypertension I10
--- NOTE | 2022-07-24 11:35 | PC.OT ---
Patient is to receive surgery tomorrow. Will hold OT evaluation until after surgery.
[2022-07-24] MEDS: oxyCODONE 5 mg IR Tab/Cap PO ×3 (11:42→23:03)
[2022-07-24] MEDS: enoxaparin 40 mg/0.4 mL Syringe SUBCUT (15:53)
[2022-07-25] VITALS (21 sets, daily range): BP systolic 104–168; BP diastolic 56–77; PULSE 67–87; RESP 14–18; TEMP 36.4–37; O2SAT 92–99
--- NOTE | 2022-07-25 | XR_ITS ---
WS: [id number] XR lumbar spine 2-3V* [id number] REASON FOR EXAM: Lumbar decompression FINDINGS: Surgical instrument is at the level of the L3-L4 disc space on the AP and lateral views. XR/XR lumbar spine 2-3V* [id number] IMPRESSION: Localization of the L3-L4 level in surgery.
[2022-07-25] MEDS: oxyCODONE 5 mg IR Tab/Cap PO ×2 (05:15→12:27)
[2022-07-25] MEDS: atorvastatin 40 mg Tablet 20 MG PO (05:16)
[2022-07-25] MEDS: lisinopril 10 mg Tablet 5 MG PO (05:17)
--- NOTE | 2022-07-25 07:38 | PC.OT ---
HOLD OT EVALUATION DUE TO SCHEDULED SURGERY TODAY.
--- NOTE | 2022-07-25 08:38 | ANES.PREANE2 ---
Pre-Anesthetic Assessment Height/Weight: Height 1.75 m Weight 90.265 kg Temp Pulse Resp BP Pulse Ox O2 Del Method 98.6 F 77 16 124/56 97 07/25/22 08:32 07/25/22 08:32 07/25/22 08:32 07/25/22 08:32 07/25/22 08:32 07/25/22 08:32 Preop Diagnosis: Lumbar stenosis with neurogenic claudication, bilateral foot drop Operation Date: 07/25/22 09:30 Proposed Procedures p L3/4, L4/5 Lumbar Laminectomy(Not Applicable) - Pradeep Higgins, Familial anesthetic complications: None Was Beta Tejinder taken within 24 hours: N/A Was Clonidine taken within 24 hours: N/A Last intake: Intake Last Liquid Date 07/24/22 Last Liquid Time 23:30 Last Solid Date 07/24/22 Last Solid Time 18:30 Social No alcohol and No tobacco Exam alert, oriented x 3, clear to auscultation bilaterally and regular rate & rhythm Systolic ejection murmur Airway Submandibular: Other (Less than 3 finger breadths ) Cervical ROM: within normal limits Mallampati: Class III Dentition: chipped Pulmonary Denies COPD, VITO CV/HEM Hypertension and Murmur (Systolic ejection murmur) Prior to fall was able to go up flight of stairs w/o CP/SOB Has had murmur since childhood Denies CHF, CAD Hx of AAA TTE 07/23/22 ?CONCLUSIONS ?1. Normal left ventricular size, systolic function and wall ?thickness, with no regional wall motion abnormalities. Left ?ventricular ejection fraction is estimated at 65 %. Grade I ?diastolic dysfunction (abnormal relaxation filling pattern), ?normal to mildly elevated filling pressures. ?2. Normal right ventricular size and systolic function. ?3. Moderately thickened and calcified trileaflet aortic valve. ?Aortic valve sclerosis without stenosis.? Mild aortic valve ?regurgitation. ?4. No prior similar studies to compare. None reported Hepatic None reported GI Gastroesophageal Reflux Disease (Well controlled ) Metabolic Hyperlipidemia Musc/skel Lower Back Pain, Osteoarthritis/DJD and Weakness spinal stenosis ischial tuberosity fx Neuropsych Neuropathy (b/l foot drop ) Denies head trauma with falls, no LOC Medications/Allergies Home Medications Medication Instructions Recorded Confirmed Last Taken Type hydrocodone 5 mg-acetaminophen 325 1 tab PO Q8H PRN pain #12 tabs 07/20/22 07/23/22 Unknown Rx mg tablet methocarbamol 750 mg tablet 750 mg PO Q8H #21 tabs 07/20/22 07/23/22 07/22/22 Rx atorvastatin 20 mg tablet (Lipitor) 20 mg PO QAM 07/23/22 07/23/22 07/22/22 History cholecalciferol (vitamin D3) 125 125 mcg PO QAM 07/23/22 07/23/22 07/22/22 History mcg (5,000 unit) tablet (Vitamin D3) coenzyme Q10 100 mg capsule 100 mg PO QAM 07/23/22 07/23/22 07/22/22 History (CoQ-10) cyanocobalamin (vitamin B-12) 1,000 mcg PO DAILY PRN unknown 07/23/22 07/23/22 Unknown History 1,000 mcg/mL oral drops (Vitamin B-12) hydrochlorothiazide 25 mg tablet 25 mg PO QAM PRN Edema 07/23/22 07/23/22 Unknown History lisinopril 10 mg tablet 5 mg PO QAM 07/23/22 07/23/22 07/22/22 History naproxen sodium 220 mg tablet 440 mg PO Q12H PRN Pain 07/23/22 07/23/22 Unknown History (Aleve) prednisone 20 mg tablet See Rx Instructions .Route .COMPLEX 07/23/22 07/23/22 07/22/22 History 60 mg Allergies Allergy/AdvReac Type Severity Reaction Status Date / Time meperidine [From Demerol] Allergy Unknown Verified 07/23/22 11:41 Penicillins Allergy Unknown Verified 07/23/22 11:41 Current Medications Generic Name Dose Route Start Last Admin Trade Name Freq PRN Reason Stop Dose Admin Acetaminophen 650 mg 07/23/22 15:52 07/23/22 20:08 Acetaminophen 325 Mg Tablet PO 650 mg Q6H PRN Administration Mild/Mod Pain Or Temp >/= 101 Atorvastatin Calcium 20 mg 07/24/22 06:00 07/25/22 05:16 Atorvastatin 40 Mg Tablet PO 20 mg QAM SHANA Administration Enoxaparin Sodium 40 mg 07/23/22 15:52 07/24/22 15:53 Enoxaparin 40 Mg/0.4 Ml Syringe SUBCUT 40 mg Q24H SHANA Administration Lisinopril 5 mg 07/24/22 06:00 07/25/22 05:17 Lisinopril 10 Mg Tablet PO 5 mg QAM SHANA Administration Oxycodone HCl 5 mg 07/23/22 15:52 07/25/22 05:15 Oxycodone 5 Mg Ir Tab/Cap PO 5 mg Q6H PRN Administration SEVERE PAIN PFSH Anesthesia Medical History Abdominal aortic aneurysm 3.1 cm per scan July 23, 2022 Heart murmur Hyperlipidemia Hypertension Surgical History History of surgery on arm Family History Other Cancer Social History Smoking and tobacco status: former smoker Alcohol intake: never Data Anesthesia : 07/24/22 04:43 07/24/22 04:43 Short CBC 07/23/22 07/24/22 Range/Units 07:40 04:43 WBC 14.9 H 7.2 (4.0-10.0) 10^3/uL Hgb 16.1 13.2 (11.7-16.6) g/dL Hct 49.0 39.9 L (42.0-52.0) % MCV 88.8 89.1 (80-94) fl Plt Count 282 190 D (130-400) 10^3/cmm Neut % (Auto) 62.8 55.2 % Neut # (Auto) 9.35 H 3.98 (1.8-7.7) 10^3/uL BMP 07/23/22 07/24/22 07:40 04:43 Sodium 142 140 Potassium 3.9 4.2 Chloride 100 104 Carbon Dioxide 24 25 BUN 24 H 28 H Creatinine 1.1 1.0 Glucose 111 85 Calcium 9.6 8.8 Liver Function 07/23/22 Range/Units 07:40 Total Bilirubin 0.8 (0.15-1.2) mg/dL AST 21 (0-40) U/L ALT 27 (0-41) U/L Alkaline Phosphatase 58 (40-130) U/L Albumin 4.3 (3.5-5.2) g/dL Urine 07/24/22 Range/Units 01:12 Urine Color Yellow (Yellow) Urine Appearance Clear (CLEAR) Urine pH 6 (5-7) Ur Specific [employer] 1.020 (1.005-1.030) Urine Protein Neg (Negative) Urine Glucose (UA) Norm (Normal) Urine Ketones Negative (Negative) Urine Nitrate Negative (Negative) Urine Bilirubin Neg (Negative) Ur Leukocyte Esterase Negative (Negative) Urine RBC None (0-2) /hpf Urine WBC None (0-5) /hpf Cardiac Studies: Echocardiogram 07/23/22
[2022-07-25] MEDS: sodium chloride 0.9% 1,000 ML 30 ML IV (08:41)
--- NOTE | 2022-07-25 09:05 | W.PM.OPSUD ---
Surgery/Procedure H&P Update DATE OF PROCEDURE: July 25, 2022 DATE H&P PERFORMED: 07/23/22 H&P UPDATE INFORMATION: I have reviewed H&P completed within last 30 days, I have examined patient prior to procedure and No changes to prior documentation PREOP DIAGNOSIS: Lumbar stenosis with neurogenic claudication, bilateral foot drop PLANNED PROCEDURE: Operation Date: 07/25/22 09:30 Proposed Procedures p L3/4, L4/5 Lumbar Laminectomy(Not Applicable) - Pradeep Higgins DO
[2022-07-25] MEDS: clindamycin 900 MG/50 ML PREMIX 100 MG IV ×2 (09:18→18:06)
--- NOTE | 2022-07-25 10:30 | PC.CHAP ---
Pastoral Care Encounter/Spiritual Assessment Type of Contact [] Declined clinical director visit [] Patient/Family/Request visit [] Outpatient visit [] Follow-up visit [] Physician referral [] Code/Alert [x] Routine visit [] Staff referral [] Actively dying [] Patient sleeping [] Family support [] [x] Out of room [] Palliative care [] [] Receiving care in room [] Pre-surgical visit [] Trauma [] Long length of stay [] ICU visit [] Other: Relational/Emotional Strength [] Patient feels connected with others/family/visitors/staff [] Distress [] Loneliness/isolation [] Abandonment Spirituality of Patient [] Person of Bethany [] Attends Bahai of their [place]any [] Believes in Prayer [] Reads Bible or Restoration materials [] There are Spiritual issues to be addressed Certified Marine Mechanic Interventions [] Prayer [] Active listening [] Non-anxious presence [] Spiritual/emotional support [] Crisis/trauma care [] Spiritual counseling [] Bereavement support [] Provided bereavement packet [] Provided Bible/devotional materials [] Provided toy/stuffed animal, coloring book to patient or family member [] Provided Communion [] Anointing/[place] [] Salvation [] Completed spiritual assessment [] Other: Impact on Illness or Injury [] Angry [] Fearful [] Anxious [] Often cries [] Exhaustion [] Unable to work [] Unable to attend confucianism [] Unable to walk/stand [] Unable to read [] Unable to drive [] Unable to eat/drink [] Unable to sleep [] Unable to be with family [] Patient intubated [] Other: Summary Time spent with patient
[2022-07-25] MEDS: vancomycin 1,000 MG SDV 1000 MG XX (10:33)
--- NOTE | 2022-07-25 11:22 | PM.OP ---
Operative Report Date of procedure: July 25, 2022 Pre-op diagnosis: Preop Diagnosis Lumbar stenosis with neurogenic claudication, bilateral foot drop Post-op diagnosis: same Procedure done: 1. L3/4 lamincetomy with partial facetectomies 2. L4/5 laminectomy with partial facetectomies Surgeon: Pradeep Higgins Plate Slitter And Inspector: Eduardo Maddox Plate Slitter And Inspector: The surgical appliance fitter, Eduardo Maddox, PAC was needed for his expertise under the microscope. He was important and necessary throughout the procedure to complete in a safe and timely manner. He assisted with patient positioning prepping and draping tissue retraction suctioning of the operative field protection of the dural sac and tissue closure Estimated blood loss (mL): 50 Brief History: 1. L3/4 lamincetomy with partial facetectomies 2. L4/5 laminectomy with partial facetectomies Patient is brought to the operative suite. After undergoing anesthesia they are placed in the prone position. All areas of impingement are well padded. Patient is then prepped and draped in the normal sterile fashion. A skin incision is made over the L3-L5 level. This is confirmed under c-arm guidance. A bovie is used to clear the soft tissue off the lamina and the L 3/4 facet joint. A high speed johnny is then used to perform the laminectomy and take down the medial aspect of the L3/4 facet joint. A kerrison rongeure was then used to take down the remaining lamina and smooth the edged of the laminectomy up to the point where the ligamentum flavum attaches. Attention was then brought to the medial aspect of the facet joint. The remaining medial aspect of the superior and inferior aspect of the facet joint were taken down with the kerrison from the pedicle of L3 to L 4. The facet joint had significant hypertrophy. Attention was then brought to the Ligamentum Flavum. The ligament was taken down from the lamina of L3 to L4 and out medially to the remaining facet joint. The ligament was extremely thick. The dura was then exposed. The dura was in good repair. The L3 nerve was then traced with a curette out the L 3/4 foramen and found to be adequately decompressed. The L 4 nerve was traced with a curette around the L 4 pedicle. The lateral recess was opened with a kerrison helping to further decompress the L 4 nerve. The bovie was used to take down the soft tissue on the spinous process. The high speed johnny was used to take down the spinous process and then the contralateral lamina of L3. The kerrison rongeur was used to take down the remaining lamina to the point where the ligamentum flavum attached and the ligamentum flavum was taken down from L3 to L4. The kerrison rongeur was then used to reach across and take down the medial aspect of the contralateral L3/4 facet joint.The currete was used to trace the contralateral L3 nerve out the L3/4 foramen to make sure it was decompressed adequatesly and the L4 was traced around the L4 pedicle. The lateral recess was opened further with the kerrison to ensure the L4 is adequately decompressed. A bovie is used to clear the soft tissue off the lamina and the L 4/5 facet joint. A high speed johnny is then used to perform the laminectomy and take down the medial aspect of the L 4/5 facet joint. A kerrison rongeure was then used to take down the remaining lamina and smooth the edged of the laminectomy up to the point where the ligamentum flavum attaches. Attention was then brought to the medial aspect of the facet joint. The remaining medial aspect of the superior and inferior aspect of the facet joint were taken down with the kerrison from the pedicle of L4 to L 5. The facet joint had significant hypertrophy. Attention was then brought to the Ligamentum Flavum. The ligament was taken down from the lamina of L4 to L5 and out medially to the remaining facet joint. The ligament was thick. The dura was then exposed. The dura was in good repair. The L4 nerve was then traced with a curette out the L4/5 foramen and found to be adequately decompressed. The L5 nerve was traced with a curette around the L5 pedicle. The lateral recess was opened with a kerrison helping to further decompress the L5 nerve. The bovie was used to take down the soft tissue on the spinous process. The high speed johnny was used to take down the spinous process and then the contralateral lamina of L4. The kerrison rongeur was used to take down the remaining lamina to the point where the ligamentum flavum attached and the ligamentum flavum was taken down from L4 to L5. The kerrison rongeur was then used to reach across and take down the medial aspect of the contralateral L4/5 facet joint.The currete was used to trace the contralateral L4 nerve out the L4/5 foramen to make sure it was decompressed adequatesly and the L5 was traced around the L5 pedicle. The lateral recess was opened further with the kerrison to ensure the L5 is adequately decompressed. Wound is then irrigated copiously with saline and surgiflo is used to stop any bleeding. The tubular retractor is removed and the wound is closed with vicryl and monocryl suture. Glue is then used to protect the wound. A sterile dressing is then placed. Patient was then placed in the supine position and transferred to the PACU in stable condition.
--- NOTE | 2022-07-25 12:06 | P.PN_ITS ---
Subjective Subjective: Broderick underwent surgery for spinal stenosis today. I saw him in the postoperative area. No complaints. Estimated blood loss with surgery was minimal. No complications were noted. Pain appears to be under control currently. Medications: Reviewed: Yes Vitals/I&O/Wt Last Vital Signs Temp 98.2 F 07/25/22 11:30 Pulse 74 07/25/22 11:30 Resp 16 07/25/22 11:30 BP 116/58 07/25/22 11:30 Pulse Ox 98 07/25/22 11:30 O2 Del Method 07/25/22 11:30 O2 Flow Rate 6 07/25/22 11:00 07/24/22 07/25/22 07/25/22 22:59 06:59 14:59 Intake Total 240 / 1320 150 / 150 Output Total 1025 / 1025 600 / 1625 270 / 270 Balance -785 / 295 -600 / -305 -120 / -120 Weight last 48 hrs Weight 90.265 kg Physical Exam Narrative: General exam no distress Neck is supple no lymphadenopathy or thyromegaly Cardiovascular regular rate and rhythm with 3/6 systolic murmur, no S3 or S4 Lungs clear no wheezing or crackles Abdomen is soft with positive bowel sounds. No obvious organomegaly Extremities no cyanosis or clubbing. Spontaneously moving lower extremities. Data : 07/24/22 04:43 07/24/22 04:43 A&P Assessment and plan (1) Fall: Patient with multiple falls recently, attributed to poor sensation in his legs bilaterally consistent with his lumbar stenosis. Fall precautions here at the hospital. Status: Acute (2) Lumbar stenosis: Patient with history of severe lumbar stenosis on recent MRI. I believe this is likely contributing to nerve impingement, peripheral neuropathy, right foot drop Physical therapy and Occupational Therapy consultation Orthopedic spine surgery consultation appreciated He underwent an L3-5 laminectomy today. Status: Acute (3) Fracture of ischial tuberosity: Orthopedic consultation Status: Acute Qualifiers: Encounter type: initial encounter Fracture type: closed Laterality: right Qualified Code(s): S32.691A - Other specified fracture of right ischium, initial encounter for closed fracture (4) Heart murmur: Echocardiogram demonstrated normal EF, grade 1 diastolic dysfunction, moderately thickened and sclerotic aortic valve without stenosis Status: Acute (5) Hypertension: Continue home medications Status: Acute Plan Multiple other medical problems as outlined in past medical history Allow natural . Discussed with him and his . Lovenox for DVT prophylaxis Care coordination consult. May need placement. Attestations Medical Necessity Statement*: Needs continued hospitalization for close f ollow-up following lumbar laminectomy for severe spinal stenosis causing foot drop and falls. Coding Level of Care Code Acute Assembly Machine Set Up Mechanic for [facility] Fwd Diagnoses Fall W19.XXXA Lumbar stenosis M48.061 Fracture of ischial tuberosity S32.691A Encounter type: initial encounter Fracture type: closed Laterality: right Heart murmur R01.1 Hypertension I10
[2022-07-25] MEDS: lactated ringers 1,000 ML 90 ML IV ×2 (12:29→23:31)
--- NOTE | 2022-07-25 13:56 | ANE.PACU2 ---
Inpatient post-anesthesia follow up: Airway intact: Yes Vital signs: Temperature 98.2 F Pulse Rate 74 Respiratory Rate 16 Blood Pressure 116/58 Pulse Oximetry 98 Oxygen Delivery Me thod Room Air Oxygen Flow Rate 6 Fraction of Inspir ed Oxygen Hydration adequate: Yes Nausea and vomiting: No Pain level: 1 Mental status: Baseline
[2022-07-25] MEDS: HYDROcodone-acetaminophen 5-325 mg Tablet PO (16:03)
[2022-07-25] MEDS: enoxaparin 40 mg/0.4 mL Syringe SUBCUT (18:06)
[2022-07-25] MEDS: docusate sodium 100 mg Capsule PO (18:06)
[2022-07-26] VITALS (8 sets, daily range): BP systolic 110–170; BP diastolic 62–76; PULSE 63–84; RESP 16–20; TEMP 36.4–37.1; O2SAT 92–100
[2022-07-26] MEDS: clindamycin 900 MG/50 ML PREMIX 100 MG IV ×2 (00:23→08:05)
[2022-07-26] MEDS: lisinopril 10 mg Tablet 5 MG PO (05:28)
[2022-07-26] MEDS: atorvastatin 40 mg Tablet 20 MG PO (05:28)
[2022-07-26] MEDS: acetaminophen 325 mg Tablet 650 MG PO (05:28)
[2022-07-26 07:02] LABS: Basophils % 0.2 %; Eosinophils # 0.1 10^3/uL (0.0-0.8); Eosinophils % 1.4 %; Hematocrit 34.5 % (42.0-52.0); Hemoglobin 11.2 g/dL (11.7-16.6); Lymphocytes # 1.7 10^3/uL (0.8-4.8); Lymphocytes % 18.7 %; Mean Corpuscular HGB Conc 32.5 g/dL (30.0-36.0); Mean Corpuscular Hemoglobin 29.4 pg (28.0-34.0); Mean Corpuscular Volume 90.6 fl (80-94); Mean Platelet Volume 9.7 fL (7.4-10.4); Monocytes # 0.9 10^3/uL (0.2-0.9); Monocytes % 9.8 %; Neutrophils # 6.43 10^3/uL (1.8-7.7); Neutrophils % 69.5 %; Nucleated Red Blood Cells % 0 %; Platelet Count 191 10^3/cmm (130-400); Red Blood Count 3.81 10^6/uL (4.1-5.3); Red Cell Distribution Width 13.4 % (12.1-15.1); White Blood Count 9.3 10^3/uL (4.0-10.0)
[2022-07-26 07:23] LABS: Anion Gap 11.5 (5-19); Blood Urea Nitrogen 27 mg/dL (8-23); Calcium 8.6 mg/dL (8.5-10.5); Carbon Dioxide 27 mmol/L (22-29); Chloride 105 mmol/L (98-107); Glucose 103 mg/dL (65-115); Osmolality Calculated 293 mOsm/kg (285-295); Potassium 4.5 mmol/L (3.5-5.1); Sodium 139 mmol/L (136-145)
--- NOTE | 2022-07-26 07:24 | PM.PN ---
Subjective Subjective: POD 1 Patient resting comfortably this morning. Patient is somewhat depressed as he expected more improvement of his bilateral foot drop following surgery. He is not having pain but he is movement of his feet has not improved much. He denies any chest pain, shortness of breath, headaches. Vitals/I&O/Wt Last Vital Signs Temp 97.8 F 07/26/22 04:00 Pulse 70 07/26/22 04:00 Resp 18 07/26/22 04:00 BP 170/69 07/26/22 04:00 Pulse Ox 97 07/26/22 04:00 O2 Del Method 07/25/22 15:07 O2 Flow Rate 6 07/25/22 11:00 07/25/22 07/26/22 07/26/22 22:59 06:59 14:59 Intake Total 895 / 1285 1403 / 2688 Output Total 550 / 820 975 / 1795 200 / 200 Balance 345 / 465 428 / 893 -200 / -200 Physical Exam Narrative: Patient presents alert and oriented x3 with a good general appearance depressed mood and flat affect. Mild tenderness around the incisional site with the incision appear to be clean and dry. No signs of erythema or drainage. No signs of infection. Patient denies any fevers or chills. 5/5 motor strength both lower extremities, except in bilateral EHL/L5 distribution of both lower extremities consistent with foot drop. Calves are supple no medial thigh tenderness. Pulses are 2+ at the dorsalis pedis and posterior tibial region. Good capillary refill throughout normal sensation light touch both lower extremities. Data : 07/26/22 06:24 07/26/22 06:24 A&P Assessment and plan (1) Bilateral foot-drop: Discussed at length with the patient and reassured him that with physical therapy hard work that his condition still could improve. Encouraged him to stay positive. Discussed with him that nerves heal very slowly. Discussed that the surgery was a success. Discussed with him we will have high school social studies tutor evaluate for possible rehab placement for more physical therapy as I want him to be mobilizing with good stability due to his increased fall risk. Physical therapy will evaluate him as well the potential of fitting him with AFOs to help his rehab. Encourage incentive spirometry for pulmonary toilet. Discussed possible discharge tomorrow if placement found or if physical therapy deems him stable to be discharged home. Status: Acute (2) Status post lumbar laminectomy: Status: Acute Attestations Medical Necessity Statement*: technical services librarian for placement, physical therapy evaluation for his stability status based on fall risk. Coding Level of Care Code Acute Occupational Therapy Program Director for [facility] Fwd Diagnoses Bilateral foot-drop M21.371; M21.372 Status post lumbar laminectomy Z98.890
[2022-07-26] MEDS: HYDROcodone-acetaminophen 5-325 mg Tablet PO ×4 (08:04→21:44)
[2022-07-26] MEDS: docusate sodium 100 mg Capsule PO ×2 (08:04→17:33)
[2022-07-26] MEDS: lactated ringers 1,000 ML 90 ML IV ×2 (08:17→22:34)
--- NOTE | 2022-07-26 10:24 | PC.SOCIAL ---
IMM update IMM updated with patient. Verbalized an understanding. Copy Pg 2 provided. Initialled, dated, timed, and placed in chart.
--- NOTE | 2022-07-26 15:00 | PM.PN ---
Subjective Subjective: She will is doing all right. Pain currently is manageable with current regimen. Denies any shortness of breath or other complaints. Has been weak, working with therapy, working with case management on setting up rehabilitation after discharge. Vitals/I&O/Wt Last Vital Signs Temp 97.5 F L 07/26/22 11:50 Pulse 70 07/26/22 11:50 Resp 16 07/26/22 11:50 BP 110/63 07/26/22 11:50 Pulse Ox 99 07/26/22 11:50 O2 Del Method 07/26/22 11:50 O2 Flow Rate 6 07/25/22 11:00 07/26/22 07/26/22 07/26/22 06:59 14:59 22:59 Intake Total 1403 / 2688 1079 / 1079 Output Total 975 / 1795 200 / 200 Balance 428 / 893 879 / 879 Physical Exam Narrative: Sitting up in chair. Visited by his . Const: COMMON NORMALS: patient oriented x3 and alert GENERAL APPEARANCE: cooperative ORIENTATION/CONSCIOUSNESS: Yes awake HENMT: COMMON NORMALS: oropharynx normal Neck/C-Spine: COMMON NORMALS: no JVD Resp: COMMON NORMALS: normal respiratory effort and clear to auscultation bilaterally AUSCULTATION: clear to auscultation bilaterally Cardio: COMMON NORMALS: no JVD, regular rhythm, S1 normal heart sound present, S2 normal heart sound present and No murmurs present (Cardio) RHYTHM: regular rhythm HEART SOUNDS: S1 normal heart sound present and S2 normal heart sound present GI: COMMON NORMALS: Normal to inspection, nondistended, normoactive bowel sounds present, Soft to palpation and non-tender PALPATION: Yes Soft to palpation Extremity: COMMON NORMALS: no joint enlargement and no pedal edema Neuro: COMMON NORMALS: patient oriented x3 and moves all extremities SENSORIUM/ORIENTATION: Yes alert Skin: COMMON NORMALS: no rashes or lesions noted GENERAL SKIN EXAM: no rashes or lesions noted Data : 07/26/22 06:24 07/26/22 06:24 A&P Assessment and plan (1) Lumbar stenosis: S/p L3-5 laminectomy 07/25. Continue pain control. PT, OT. Reassess hemoglobin, currently down to 11.2. Arrangements for post discharge rehabilitation. Patient with history of severe lumbar stenosis on recent MRI. Likely contributing to nerve impingement, peripheral neuropathy, right foot drop Status: Acute (2) Fall: Patient with multiple falls recently, attributed to poor sensation in his legs bilaterally consistent with his lumbar stenosis. Fall precautions here at the hospital. Continue therapy. Rehabilitation arrangements. Status: Acute (3) Fracture of ischial tuberosity: Orthopedic consultation Status: Acute Qualifiers: Encounter type: initial encounter Fracture type: closed Laterality: right Qualified Code(s): S32.691A - Other specified fracture of right ischium, initial encounter for closed fracture (4) Heart murmur: Echocardiogram demonstrated normal EF, grade 1 diastolic dysfunction, moderately thickened and sclerotic aortic valve without stenosis Status: Acute (5) Hypertension: Continue home medications Status: Acute Plan Multiple other medical problems as outlined in past medical history Attestations Medical Necessity Statement*: Continue hospitalization for arrangements for rehabilitation due to spinal stenosis with multiple recent falls, status post spine surgery and with fracture of the ischial tuberosity. Coding Level of Care Code [facility] Lumbar stenosis M48.061 Fall W19.XXXA Fracture of ischial tuberosity S32.691A Encounter type: initial encounter Fracture type: closed Laterality: right Heart murmur R01.1 Hypertension I10
[2022-07-26] MEDS: enoxaparin 40 mg/0.4 mL Syringe SUBCUT (17:33)
[2022-07-27] VITALS: BP 171/75; PULSE 79; RESP 19; TEMP 36.9; O2SAT 96
[2022-07-27] MEDS: HYDROcodone-acetaminophen 5-325 mg Tablet PO ×2 (03:51→08:31)
[2022-07-27 04:00] VITALS: BP 129/72; PULSE 71; RESP 17; TEMP 36.6; O2SAT 93
[2022-07-27] MEDS: atorvastatin 40 mg Tablet 20 MG PO (05:53)
[2022-07-27] MEDS: lisinopril 10 mg Tablet 5 MG PO (05:53)
[2022-07-27 07:17] VITALS: BP 162/77; PULSE 72; RESP 17; TEMP 36.6; O2SAT 98
--- NOTE | 2022-07-27 07:19 | P.PN_ITS ---
Subjective Subjective: POD 2 Patient resting comfortably. Reports some improvement of his lower extremity pain. Ambulating with physical therapy. Vitals/I&O/Wt Last Vital Signs Temp 97.9 F 07/27/22 07:17 Pulse 72 07/27/22 07:17 Resp 17 07/27/22 07:17 BP 162/77 07/27/22 07:17 Pulse Ox 98 07/27/22 07:17 O2 Del Method 07/27/22 07:17 O2 Flow Rate 6 07/26/22 20:00 07/26/22 07/27/22 07/27/22 22:59 06:59 14:59 Intake Total 1120 / 2199 1060 / 3259 Output Total 900 / 1100 1146 / 2246 Balance 220 / 1099 -86 / 1013 Physical Exam Narrative: Patient presents a lert and oriented x3 with a good gen eral appearance de pressed mood and f lat affect. ? Mild tenderness around the incisional si te with the incisi on appear to be cl rosina and dry.? No s igns of erythema o r drainage.? No si gns of infection.? Patient denies an y fevers or chills .? 5/5 motor stren gth both lower ext remities, except i n bilateral EHL/L5 distribution of b oth lower extremit ies consistent wit h foot drop. Calve s are supple no me dial thigh tendern ess.? Pulses are 2 + at the dorsalis pedis and posterio r tibial region.? Good capillary ref ill throughout nor mal sensation ligh t touch both lower extremities. Data : 07/26/22 06:24 07/26/22 06:24 A&P Assessment and plan (1) Bilateral foot-drop: Discharged to [facility] when placement found. Continue physical therapy. We will see him back in the office in 1 week's time for wound check. Status: Acute (2) Status post lumbar laminectomy: Status: Acute Attestations Medical Necessity Statement*: DC when placement found Coding Level of Care Code Acute Agriculture Worker for [facility] Fwd Diagnoses Bilateral foot-drop M21.371; M21.372 Status post lumbar laminectomy Z98.890
[2022-07-27] MEDS: docusate sodium 100 mg Capsule PO (08:31)
[2022-07-27 10:10] LABS: Basophils % 0.3 %; Eosinophils # 0.3 10^3/uL (0.0-0.8); Eosinophils % 3.6 %; Hematocrit 34.8 % (42.0-52.0); Hemoglobin 11.5 g/dL (11.7-16.6); Lymphocytes # 1.6 10^3/uL (0.8-4.8); Lymphocytes % 18.7 %; Mean Corpuscular Hemoglobin 29.7 pg (28.0-34.0); Mean Corpuscular Volume 89.9 fl (80-94); Mean Platelet Volume 9.5 fL (7.4-10.4); Monocytes # 0.7 10^3/uL (0.2-0.9); Monocytes % 7.9 %; Neutrophils # 5.97 10^3/uL (1.8-7.7); Neutrophils % 68.8 %; Nucleated Red Blood Cells % 0 %; Platelet Count 204 10^3/cmm (130-400); Red Blood Count 3.87 10^6/uL (4.1-5.3); Red Cell Distribution Width 13.4 % (12.1-15.1); White Blood Count 8.7 10^3/uL (4.0-10.0)
[2022-07-27] MEDS: lactated ringers 1,000 ML 90 ML IV (10:23)
[2022-07-27 11:54] VITALS: BP 125/66; PULSE 74; RESP 16; TEMP 36.7; O2SAT 95
[2022-07-27 15:04] LABS: SARS Covid-2 Antigen Negative (Negative)
--- NOTE | 2022-07-27 15:24 | PC.NURSE ---
Report called to Joe Hodge at [facility] at this time. Explained to Joe that patient will need assistance getting out of the car when they arrive. Joe verbalized understanding.
[2022-07-27 15:45] VITALS: BP 125/66; PULSE 74; RESP 16; TEMP 36.7; O2SAT 95
--- NOTE | 2022-07-27 16:07 | PC.NURSE ---
Patient is A&Ox3. Respirations even and non-labored room. Patient assisted into a wheel chair and transported to private car to be transported to [facility] by his .
--- NOTE | 2022-07-27 22:30 | P.DS_ITS ---
Discharge Providers Date of Admission: 07/23/22 15:52 Date of Discharge: July 27, 2022 Attending Provider at Admission: Sujit Rice MD Attending Provider at Discharge: Pelon Haile Primary Care Provider: SIGIFREDO Cavanaugh Diagnoses at Discharge Discharge Diagnosis (1) Bilateral foot-drop: Status: Acute (2) Status post lumbar laminectomy: Status: Acute Reason for Visit Reason for Visit: FALL Hospital Course Hospital Course Pleasant 82-year-old gentleman with repeated falls, was admitted with right ischial tuberosity fracture, severe lumbar stenosis causing foot drop, underwent lumbar laminectomy, with generalized deconditioning proceeded to SNF for rehabilitation at discharge. Blood counts down to 11.2 lowest, today 11.5. Echocardiogram obtained during hospitalization with normal ejection fraction, grade 1 diastolic function, normal RV size and function, moderately thickened and calcified trileaflet aortic valve. Sclerosis without stenosis. Mild AVR. Physical Exam Narrative: Sitting up in chair. Visited by his . Const: COMMON NORMALS: patient oriented x3 and alert GENERAL APPEARANCE: cooperative ORIENTATION/CONSCIOUSNESS: Yes awake HENMT: COMMON NORMALS: oropharynx normal Neck/C-Spine: COMMON NORMALS: no JVD Resp: COMMON NORMALS: normal respiratory effort and clear to auscultation bilaterally AUSCULTATION: clear to auscultation bilaterally Cardio: COMMON NORMALS: no JVD, regular rhythm, S1 normal heart sound present, S2 normal heart sound present and No murmurs present (Cardio) RHYTHM: regular rhythm HEART SOUNDS: S1 normal heart sound present and S2 normal heart sound present GI: COMMON NORMALS: Normal to inspection, nondistended, normoactive bowel sounds present, Soft to palpation and non-tender PALPATION: Yes Soft to palpation Extremity: COMMON NORMALS: no joint enlargement and no pedal edema Neuro: COMMON NORMALS: patient oriented x3 and moves all extremities SENSORIUM/ORIENTATION: Yes alert Skin: COMMON NORMALS: no rashes or lesions noted GENERAL SKIN EXAM: no rashes or lesions noted Discharge Data Studies Completed and Pending Completed Studies During Hospitalization Category Date Time Status XR hip BI 3-4V wo/w pel [id number] Stat Exams 07/23/22 07:52 Completed XR lumbar spine 2-3V* [id number] Routine Exams 07/25/22 Completed CV. echo complete* [id number] Routine Ultrasound 07/23/22 15:52 Completed Radiology Impressions Hip/Pelvis X-Ray 07/23/22 07:52 IMPRESSION: Fracture of the right ischial tuberosity as above. Lumbar Spine X-Ray 07/25/22 00:00 IMPRESSION: Localization of the L3-L4 level in surgery. Laboratory Results WBC 8.7 10^3/uL (4.0-10.0) 07/27/22 09:54 RBC 3.87 10^6/uL (4.1-5.3) L 07/27/22 09:54 Hgb 11.5 g/dL (11.7-16.6) L 07/27/22 09:54 Hct 34.8 % (42.0-52.0) L 07/27/22 09:54 MCV 89.9 fl (80-94) 07/27/22 09:54 MCH 29.7 pg (28.0-34.0) 07/27/22 09:54 MCHC 33.0 g/dL (30.0-36.0) 07/27/22 09:54 RDW 13.4 % (12.1-15.1) 07/27/22 09:54 Plt Count 204 10^3/cmm (130-400) 07/27/22 09:54 MPV 9.5 fL (7.4-10.4) 07/27/22 09:54 Neut % (Auto) 68.8 % 07/27/22 09:54 Lymph % (Auto) 18.7 % 07/27/22 09:54 [place] % (Auto) 7.9 % 07/27/22 09:54 Eos % (Auto) 3.6 % 07/27/22 09:54 Baso % (Auto) 0.3 % 07/27/22 09:54 Neut # (Auto) 5.97 10^3/uL (1.8-7.7) 07/27/22 09:54 Lymph # (Auto) 1.6 10^3/uL (0.8-4.8) 07/27/22 09:54 [place] # (Auto) 0.7 10^3/uL (0.2-0.9) 07/27/22 09:54 Eos # (Auto) 0.3 10^3/uL (0.0-0.8) 07/27/22 09:54 Baso # (Auto) 0.0 10^3/uL (0.0-0.1) 07/27/22 09:54 Nucleated RBC % (auto) 0 % 07/27/22 09:54 Nucleated RBCs # 0.0 /100WBC 07/27/22 09:54 Sodium 139 mmol/L (136-145) 07/26/22 06:24 Potassium 4.5 mmol/L (3.5-5.1) 07/26/22 06:24 Chloride 105 mmol/L (98-107) 07/26/22 06:24 Carbon Dioxide 27 mmol/L (22-29) 07/26/22 06:24 Anion Gap 11.5 (5-19) 07/26/22 06:24 BUN 27 mg/dL (8-23) H 07/26/22 06:24 Creatinine 0.9 mg/dL (0.7-1.2) 07/26/22 06:24 GFR Calculation Not Reportable 07/26/22 06:24 Glucose 103 mg/dL (65-115) 07/26/22 06:24 Calculated Osmolality 293 mOsm/kg (285-295) 07/26/22 06:24 Calcium 8.6 mg/dL (8.5-10.5) 07/26/22 06:24 Total Bilirubin 0.8 mg/dL (0.15-1.2) 07/23/22 07:40 AST 21 U/L (0-40) 07/23/22 07:40 ALT 27 U/L (0-41) 07/23/22 07:40 Alkaline Phosphatase 58 U/L (40-130) 07/23/22 07:40 Total Protein 7.3 g/dL (6.6-8.7) 07/23/22 07:40 Albumin 4.3 g/dL (3.5-5.2) 07/23/22 07:40 Globulin 3.0 g/dL (1.3-4.6) 07/23/22 07:40 Urine Color Yellow (Yellow) 07/24/22 01:12 Urine Appearance Clear (CLEAR) 07/24/22 01:12 Urine pH 6 (5-7) 07/24/22 01:12 Ur Specific [place] 1.020 (1.005-1.030) 07/24/22 01:12 Urine Protein Neg (Negative) 07/24/22 01:12 Urine Glucose (UA) Norm (Normal) 07/24/22 01:12 Urine Ketones Negative (Negative) 07/24/22 01:12 Urine Blood Neg (Negative) 07/24/22 01:12 Urine Nitrate Negative (Negative) 07/24/22 01:12 Urine Bilirubin Neg (Negative) 07/24/22 01:12 Urine Urobilinogen Norm mg/dL (Negative) 07/24/22 01:12 Ur Leukocyte Esterase Negative (Negative) 07/24/22 01:12 Urine RBC None /hpf (0-2) 07/24/22 01:12 Urine WBC None /hpf (0-5) 07/24/22 01:12 Ur Squamous Epith Cells 0-4 /hpf (0-5) H 07/24/22 01:12 Amorphous Sediment Not Reportable 07/24/22 01:12 Urine Bacteria None /hpf (NONE) 07/24/22 01:12 Hyaline Casts 0-4 /lpf H 07/24/22 01:12 Urine Mucus 1+ /hpf 07/24/22 01:12 SARS-CoV-2 Ag (Rapid) Negative (Negative) 07/27/22 14:16 Vitals Last Vital Signs Temp 98.1 F 07/27/22 15:45 Pulse 74 07/27/22 15:45 Resp 16 07/27/22 15:45 BP 125/66 07/27/22 15:45 Pulse Ox 95 07/27/22 15:45 O2 Del Method 07/27/22 07:17 O2 Flow Rate 6 07/27/22 08:40 Discharge Plan Discharge Patient Disposition: Xfer SNF Condition: Stable Prescriptions: New hydrocodone-acetaminophen 5-325 mg tablet 1 - 2 tab PO .Q4-6H Qty: 40 0RF hydrocodone-acetaminophen 5-325 mg tablet 1 tab PO Q6H PRN (Reason: pain) Qty: 14 0RF Continued methocarbamol 750 mg tablet 750 mg PO Q8H Qty: 21 0RF Lipitor 20 mg Tablet 20 mg PO QAM prednisone 20 mg Tablet See Rx Instructions .ROUTE .COMPLEX Rx Instructions: 60mg po daily for 3 days 40mg po daily for 2 days 20mg po daily for 2 days lisinopril 10 mg Tablet 5 mg PO QAM Aleve 220 mg Tablet 440 mg PO Q12H PRN (Reason: Pain) hydrochlorothiazide 25 mg Tablet 25 mg PO QAM PRN (Reason: Edema) CoQ-10 100 mg Capsule 100 mg PO QAM Vitamin D3 125 mcg (5,000 unit) Tablet 125 mcg PO QAM Vitamin B-12 1,000 mcg/mL Drops 1,000 mcg PO DAILY PRN (Reason: unknown) Discontinued hydrocodone-acetaminophen 5-325 mg tablet 1 tab PO Q8H PRN (Reason: pain) Qty: 12 0RF Discharge Orders: Discharge Order (Routine); Ordered 07/27/22 Ordered By: Eduardo Maddox Referrals: [facility] [Outside] Pradeep Higgins DO [Physician] - 2 weeks Anjana Weathers FNP [Primary Care Provider] - 4-7 days Discharge Activity: Limit activity as instructed and As per PT/OT instructions Patient Instructions: Opioid Safety Activity Restrictions/Additional Instructions: Thank you for [facility] for your care! The following is a list of instructions, from your provider, to follow upon your discharge to ensure you have the optimal recovery from your recent injury orsurgery. Follow-up care is a lomas part of your treatment and safety. Be sure to make and go to all appointments, and call your doctor if you are having problems. If you do not already have a follow-up appointment made, call Dr. Higgins office in the next 1-3 days to make follow up appointment for 2 weeks at [phone]. It is also a good idea to know your test results and keep a list of the medicines you take. Medications will be prescribed for you at your provider's discretion. These medications are to be used as instructed; if they are taken more often that prescribed they will not be refilled early and in most cases will not be refilled at all. > When a refill is needed,you should contact deneen guzman 2-3 business days before your prescription runs out. Medications will NOT be refilled by weight reduction specialist providers after hours! > Many pain medications contain Tylenol (Acetaminophen). Do not consume more than 4,000 mg of Tylenol per day in total with any combination ofmedications. > Pain medications can cause constipation. Please use an over the counter stool softener as directed, while taking pain medications. Consulty our local pharmacist with questions or recommendations on stool softeners. If constipation persists, contact our office or your primary care provider. > While under our care,you are not to receive pain medications or other controlled substances from any other provider unless our office is notified and approves. Any attempts to do so will result in refusal to prescribe any further pain medications and possible dismissal from our practice. ? Your wound and/or dressing should remain clean and dry for 2 days after surgery. On postoperative day 2 (48 hours after your surgery) the dressing (if present) should be removed and it is okay to shower and get the incision wet. Pad dry afterwards. No further dressing should be required from that point on. Do not put any creams or ointments on theincision > It is normal for there to be a small amount of discharge (bloody or blood tinged) present from a surgical wound for the first 1-3days. > The wound should be examined twice a day for signs of infection. Mild redness or bruising is to be expected but indications that an infection maybe starting would include; An increase in redness, swelling, or discharge, a foul odor present around the incision, and/or a fever greater than 101 ?F ? Showering is permitted, however we ask that you do not take a bath, sit in a whirlpool / Jacuzzi, or go swimming for 1 month. For only the first 2 days after surgery, lt wilt be necessary for you to cover your wound/dressing with plastic and tape to keep it dry. ? Walking is essential for the healing process after surgery. We would like you to slowly advance your walking. This should be done on relatively flat clear ground (inside or out) or can be done on a treadmill. Remember this goal does not have to happen all at once, slowly increase your distance and duration. This can be broken into more more than one walk per day as tolerated. Patients who walk as directed after surgery rarely require Physical Therapy. In the unlikely event this issue arises your provider will d irect hospital staff to make the appropriate arrangements. ? No lifting over 5 pounds {a gallon of milk) or bending/twisting until further notice. Each of these activities places an unnecessary amount of stress onto the body and can impede the delicate healing process. > Instead of bending at the waist, keep your back straight and bend at the knees. > Instead of twisting your torso, keep your back straight and turn your entire body with your feet. ? You may sleep in any position which makes you comfortable. Many patients find comfort sleeping in a reclining chair. It is not abnormal to have difficulty sleeping for the first several weeks following your surgery. We recommend trying Benadry! or Tylenol PM as directed to help with your sleeping difficulties. Both medications are over the counter and available withoutprescription. ? NO SMOKING!!! Smoking dramatically increases the probability of developing postoperative wound infections. ? Common complaints after lumbar and/or thoracic spine surgery include, but are not limited to: numbness and/or tingling in the legs, pain around the incision and surrounding tissues, muscle spasms, or stiffness of the middle to low back. Contact our office if these symptoms persist or if an acute change occurs. ? No driving for the first 3-5days, and not while taking narcotics [] until seen at your follow-up appointment and cleared. There are no restrictions for riding on short trips, however if you take a longer trip, arrangements should be made to make regular stops to get out of the vehicle and stretch . ? Swelling is an unfortunate event that will take place with any surgery and is the primary source of your postoperative discomfort. While walking and regular approved activities helps control inflammation, there are additional steps you can take to minimizeswelling. > Place ice over the surgical site and surrounding tissue for twenty minutes, followed by applying a low/medium heat (heating pad) for an additional twenty minutes every 1-2 hours as needed for painrelief. > You may use of over the counter anti-inflammatory medications (Ibuprofen, Motrin, Aleve, Advil, etc) as directed on the package label. These types of medicines wm significantly reduce the amount of discomfort you experience after surgery from swelling. It should be noted that if you have and allergy to any of these medications, or a history of ulcers or kidney disease you should consult you primary care provider prior to starting these medications. Discharge Attestations Time Spent in Discharge Care*: greater than 30 min Quality Metrics Clinical Quality Measures [ No reported AMI, CVA or VTE this stay] Coding Level of Care Code Acute Chg FW DC note Diagnoses Bilateral foot-drop M21.371; M21.372 Status post lumbar laminectomy Z98.890
== END 2022-07-27 16:25 | disposition skilled nursing facility (03) ==
LOC: ER 08:47 → ER IP 16:11 → MEDSURG 07-24 06:14
PROVIDERS: Orthopaedic Surgery; Physician Assistant; Admitting Provider Internal Medicine; Emergency Provider Family Medicine; PCP Nurse Practitioner Family; Visit Provider Internal Medicine
PROC: (CPT 63030; principal; 2022-07-25 09:20)
DX: M48.062 Spinal stenosis, lumbar region with neurogenic claudication (principal); M21.372 Foot drop, left foot; M21.371 Foot drop, right foot; G62.9 Polyneuropathy, unspecified; S32.611A Displaced avulsion fracture of right ischium, initial encounter for closed fracture; R01.1 Cardiac murmur, unspecified; I10 Essential (primary) hypertension; E78.5 Hyperlipidemia, unspecified; K21.9 Gastro-esophageal reflux disease without esophagitis; I35.1 Nonrheumatic aortic (valve) insufficiency; Z87.891 Personal history of nicotine dependence; Z88.0 Allergy status to penicillin; W18.30XA Fall on same level, unspecified, initial encounter
CPT/HCPCS: 63030; 36415; 51798; 72100; 73522; 80048; 80053; 81001; 85025; 87426; 93306; 96365; 96366; 96372; 96375; 97110; 97161; 97166; 97530; 97535; 99285; A9281; G0378; J0330; J1100; J1650; J1885; J2270; J2405; J2704; J2710; J3010; J3370; J3490; J7030

== ENCOUNTER → 2022-08-09 08:31 | Outpatient (BNVA) | payer MEDICARE, SELFPAY | PROVIDERS: PCP Nurse Practitioner Family; Visit Provider Orthopaedic Surgery | DX: Z47.89 Encounter for other orthopedic aftercare (principal) | CPT/HCPCS: 99024 ==

== ENCOUNTER → 2022-09-18 12:47 | Outpatient (BNVA) | payer MEDICARE, SELFPAY | PROVIDERS: PCP Nurse Practitioner Family; Visit Provider Orthopaedic Surgery | DX: Z47.89 Encounter for other orthopedic aftercare (principal); Z98.1 Arthrodesis status | CPT/HCPCS: 99024 ==

== ENCOUNTER → 2022-10-16 12:46 | Outpatient (BNVA) | payer MEDICARE, SELFPAY | PROVIDERS: PCP Nurse Practitioner Family; Visit Provider Physician Assistant | DX: Z98.890 Other specified postprocedural states (principal) | CPT/HCPCS: 99024 ==

== ENCOUNTER → 2024-12-14 10:10 | Outpatient (BNVA) | payer MEDICARE, SELFPAY | PROVIDERS: PCP Nurse Practitioner Family; Visit Provider Nurse Practitioner | DX: M25.531 Pain in right wrist (principal) | CPT/HCPCS: 73110 ==